=== PATIENT | female | born 1945 | race African-American/Black ===

== ENCOUNTER 2017-05-30 04:03 | Inpatient (IN) | payer MEDICARE, MEDICAID ==
[2017-05-30] VITALS (8 sets, daily range): BP systolic 114–143; BP diastolic 58–90
[~2017-05-30] VITALS: Ht 170.2 cm; Wt 99.8 kg
[~2017-05-30 04:03] MED LIST: ATORVASTATIN CA40 MG ORAL; BENAZEPRIL HCL20 MG ORAL; CALCIUM600 M1 PO; FERROUS SULFAT325 MG ORAL; METFORMIN HCL500 M1 ORAL; VITAMIN C1000 M2 PO; VITAMIN D1000 UNI1 ORAL; [UNRECOGNIZED DRUG - OTHER]
--- NOTE | 2017-05-30 04:28 | Emergency Room Report ---
History of Present Illness General Chief Complaint: Edema Source: Patient, EMS Present Illness HPI Patient presents by paramedics report of swelling of her tongue Patient reports that this has happened to her before Patient is unable to have appropriate speech however give any swelling of her tongue This happened just prior to arrival There was no reports of vomiting or diarrhea Patient is on JM inhibitor And again has apparently had this episode in the past however continues on the medication Denies any recent fevers Allergies: Coded Allergies: No Known Allergies (Unverified , 05/19/15) Patient History Past Medical History: see triage record Pertinent Family History: none Reviewed Nursing Documentation: PMH: Agreed, PSxH: Agreed Nursing Documentation-PMH Hx Cardiac Problems: Yes Hx Hypertension: Yes Hx Diabetes: Yes Hx Cancer: No Hx Gastrointestinal Problems: No Hx Neurological Problems: No Review of Systems All Other Systems: negative except mentioned in HPI Physical Exam Vital Signs Date Time Temp Pulse Resp B/P (MAP) Pulse Ox O2 Delivery O2 Flow Rate FiO2 05/30/17 04:04 97.0 78 16 134/56 100 Room Air Sp02 EP Interpretation: reviewed, normal General Appearance: no apparent distress Head: normocephalic, atraumatic Eyes: bilateral eye PERRL, bilateral eye EOMI ENT: other - Angioedema of the tongue, no obvious stridor, however the patient does have 80% blockage of the oral mucosa with the tongue Neck: full range of motion, supple Respiratory: lungs clear, normal breath sounds Cardiovascular #1: regular rate, rhythm Gastrointestinal: non tender, soft Musculoskeletal: normal inspection Neurologic: alert, oriented x3, sourcing consultant III-XII nml as tested Skin: no rash Lymphatic: no adenopathy Medical Decision Making Diagnostic Impression: Primary Impression: Angioedema ER Course Patient is a fairly complex patient with multiple differential to consideration including but not limited to cardiac cardiopulmonary and vascular emergencies It is been reported the patient is on a JM inhibitor Patient here receiving multiple medications for the reaction Airway remains open without signs of stridor At this time the patient is appropriate for telemetry admission consideration for ICU admission and preemptive airway intubation is made however given the patient's improvement at this time the patient is having conservative admission Labs Test 05/30/17 05:30 White Blood Count 10.9 K/UL (4.8-10.8) Red Blood Count 3.59 M/UL (4.20-5.40) Hemoglobin 10.4 G/DL (12.0-16.0) Hematocrit 31.6 % (37.0-47.0) Mean Corpuscular Volume 88 FL (80-99) Mean Corpuscular Hemoglobin 29.0 PG (27.0-31.0) Mean Corpuscular Hemoglobin Concent 32.9 G/DL (32.0-36.0) Red Cell Distribution Width 14.1 % (11.6-14.8) Platelet Count 403 K/UL (150-450) Mean Platelet Volume 6.0 FL (6.5-10.1) Neutrophils (%) (Auto) 67.0 % (45.0-75.0) Lymphocytes (%) (Auto) 25.6 % (20.0-45.0) Monocytes (%) (Auto) 4.8 % (1.0-10.0) Eosinophils (%) (Auto) 2.0 % (0.0-3.0) Basophils (%) (Auto) 0.6 % (0.0-2.0) Prothrombin Time 10.4 SEC (9.30-11.50) Prothromb Time International Ratio 1.0 (0.9-1.1) Activated Partial Thromboplast Time 28 SEC (23-33) Sodium Level 132 MMOL/L (136-145) Potassium Level 4.2 MMOL/L (3.5-5.1) Chloride Level 99 MMOL/L (98-107) Carbon Dioxide Level 27 MMOL/L (21-32) Anion Gap 7 mmol/L (5-15) Blood Urea Nitrogen 10 mg/dL (7-18) Creatinine 1.1 MG/DL (0.55-1.30) Estimat Glomerular Filtration Rate mL/min (>60) Glucose Level 191 MG/DL (74-106) Calcium Level 9.7 MG/DL (8.5-10.1) Total Bilirubin 0.3 MG/DL (0.2-1.0) Aspartate Amino Transf (AST/SGOT) 16 U/L (15-37) Alanine Aminotransferase (ALT/SGPT) 19 U/L (12-78) Alkaline Phosphatase 96 U/L (46-116) Total Creatine Kinase 118 U/L (26-308) Creatine Kinase MB 0.5 NG/ML (0.0-3.6) Creatine Kinase MB Relative Index 0.4 Troponin I 0.000 ng/mL (0.000-0.056) Pro-B-Type Natriuretic Peptide 59 pg/mL (0-125) Total Protein 7.8 G/DL (6.4-8.2) Albumin 3.3 G/DL (3.4-5.0) Globulin 4.5 g/dL Albumin/Globulin Ratio 0.7 (1.0-2.7) Rhythm Strip Diag. Results EP Interpretation: yes Rate: 77 Rhythm: NSR, no PVC's, no ectopy Chest X-Ray Diagnostic Results Chest X-Ray Diagnostic Results : Chest X-Ray Ordered: Yes # of Views/Limited/Complete: 1 View Indication: Chest Pain EP Interpretation: Yes Interpretation: no consolidation, no pneumothorax, other - Cardiomegaly with some effusion Impression: Other - mild CHF Last Vital Signs Date Time Temp Pulse Resp B/P (MAP) Pulse Ox O2 Delivery O2 Flow Rate FiO2 05/30/17 04:09 78 16 Room Air 05/30/17 04:04 97.0 134/56 100 Status: improved Disposition: ADMITTED INPATIENT Condition: Serious OSEI HALEY D.O. May 30, 2017 04:28
[2017-05-30] MEDS ORDERED: DiphenhydrAMINE 50mg/ml Inj IVP ONE (04:30)
[2017-05-30] MEDS ORDERED: Solu-MEDROL 125mg Inj IVP ONE (04:30)
[2017-05-30] MEDS ORDERED: BANOPHEN25 MG PO (05:09)
[2017-05-30 05:38] LABS: BASOPHILS % (AUTO) 0.6 % (0.0-2.0); LYMPHOCYTES % (AUTO) 25.6 % (20.0-45.0); MEAN CORPUSCULAR HGB CONC 32.9 G/DL (32.0-36.0); MEAN CORPUSCULAR VOLUME 88 FL (80-99); MONOCYTES % (AUTO) 4.8 % (1.0-10.0); PLATELET COUNT 403 K/UL (150-450); RED BLOOD COUNT 3.59 M/UL (4.20-5.40); RED CELL DISTRIBUTION WIDTH 14.1 % (11.6-14.8); WHITE BLOOD COUNT 10.9 K/UL (4.8-10.8)
[2017-05-30 05:46] LABS: ANION GAP 7 mmol/L (5-15); CALCIUM 9.7 MG/DL (8.5-10.1); CARBON DIOXIDE 27 MMOL/L (21-32); CHLORIDE 99 MMOL/L (98-107); CREATININE 1.1 MG/DL (0.55-1.30); POTASSIUM 4.2 MMOL/L (3.5-5.1); PROTHROMBIN TIME 10.4 SEC (9.30-11.50); SODIUM 132 MMOL/L (136-145)
[2017-05-30 05:59] LABS: ALANINE AMINOTRANSFERASE 19 U/L (12-78); ALBUMIN/GLOBULIN RATIO 0.7 (1.0-2.7); ASPARTATE AMINO TRANSFERASE 16 U/L (15-37); CKMB 0.5 NG/ML (0.0-3.6); TOTAL PROTEIN 7.8 G/DL (6.4-8.2)
[2017-05-30] MEDS: Vitamin D 1000 IU Tab ORAL SCH ×2 (10:02→17:29)
[2017-05-30] MEDS: Tums 500mg ORAL SCH ×2 (10:02→17:29)
[2017-05-30] MEDS: metFORMIN 500mg tab ORAL SCH ×2 (10:02→17:29)
[2017-05-30] MEDS: Heparin 5000 units/ml inj SUBQ SCH ×2 (10:07→21:31)
--- NOTE | 2017-05-30 11:35 | Diagnostic Imaging Report ---
Indication: Shortness of breath Technique: One view of the chest Comparison: none Findings: The heart is enlarged. There is bilateral interstitial congestion. No focal airspace consolidation The pleural spaces are clear Impression: Cardiomegaly Interstitial congestion, likely congestive heart failure
[2017-05-30] MEDS: NovoLOG Insulin Flexpen SUBQ SCH ×3 (11:40→21:32)
[2017-05-30] MEDS ORDERED: DiphenhydrAMINE 50mg/ml Inj IVP PRN (12:45)
--- NOTE | 2017-05-30 12:45 | Consultation ---
History of Present Illness General Date patient seen: May 30, 2017 Time patient seen: 11:00 Chief Complaint: angioedema Referring physician: dr Newman Reason for Consultation: inpatient management Present Illness HPI 72 y/old female with PMH of HTN, DM, hyperlipidemia, L eye cataract presented by paramedics swelling of her tongue Patient reported prior similar episodes Patient was on JM inhibitor for BP control Airway intact, but unable to speak due to swollen tongue workup in ED revealed stable VS pulse oximetry was stable on RA BS-191 HH-10.4/31.6 patient was admitted fro further management Allergies: Coded Allergies: No Known Allergies (Unverified , 05/19/15) Medication History Scheduled Ascorbic Acid (Vitamin C), 1,000 MG PO BID, (Reported) Atorvastatin Calcium* (Atorvastatin Calcium*), 40 MG ORAL BEDTIME, (Reported) Benazepril Hcl* (Benazepril Hcl*), 20 MG ORAL DA, (Reported) Calcium Carbonate (Calcium), 600 MG PO BID, (Reported) Cholecalciferol (Vitamin D3)* (Vitamin D*), 2,000 UNITS ORAL TWICE A DAY, ( Reported) Ferrous Sulfate* (Ferrous Sulfate*), 325 MG ORAL THREE TIMES A DAY, (Reported) Metformin Hcl* (Metformin Hcl*), 500 MG ORAL TWICE A DAY, (Reported) Scheduled PRN Diphenhydramine Hcl (Banophen), 25 MG PO Q6HR PRN for Per rx protocol, (Reported ) Miscellaneous Medications [pt to bring list], (Reported) Patient History History Provided By: Patient Healthcare decision maker Resuscitation status Full Code Advanced Directive on File No Past Medical/Surgical History Past Medical/Surgical History: (1) Diabetes (2) Hyperlipidemia (3) HTN (hypertension) (4) Cataract Review of Systems Constitutional: Reports: no symptoms Eye: Reports: other - L cataract ENT: Reports: see HPI Respiratory: Reports: no symptoms Cardiovascular: Reports: other - HTN, hyperlipidemia Gastrointestinal: Reports: constipation Genitourinary: Reports: no symptoms, other - hysterectomy Musculoskeletal: Reports: no symptoms Skin: Reports: no symptoms Psychiatric: Reports: no symptoms Neurological: Reports: no symptoms Endocrine: Reports: other - DM Hematologic/Lymphatic: Reports: no symptoms Physical Exam General Appearance: no apparent distress, alert, obese Lines, tubes and drains: peripheral HEENT: normocephalic, atraumatic, anicteric, other - protruded swollen tongue Neck: non-tender, supple Respiratory/Chest: lungs clear, no respiratory distress, no accessory muscle use Cardiovascular/Chest: normal rate, regular rhythm, no JVD Abdomen: normal bowel sounds, non tender - obese, soft Extremities: no calf tenderness, normal capillary refill Skin Exam: warm/dry - no Neurologic: alert, responsive - unable to speak due to swollen tongue , normal mood/affect Last 24 Hour Vital Signs Date Time Temp Pulse Resp B/P (MAP) Pulse Ox O2 Delivery O2 Flow Rate FiO2 05/30/17 12:00 97.0 80 18 130/58 96 Room Air 05/30/17 11:51 98.5 64 18 143/59 95 Room Air 05/30/17 08:00 97.5 72 19 134/90 94 Room Air 05/30/17 08:00 68 05/30/17 06:48 97.0 73 20 114/67 94 Room Air 05/30/17 06:20 97.0 68 15 129/83 99 Room Air 05/30/17 05:26 97.0 68 15 129/83 99 Room Air 05/30/17 04:09 78 16 Room Air 05/30/17 04:04 97.0 78 16 134/56 100 Room Air Intake and Output 05/30/17 05/31/17 19:00 07:00 Intake Total 180 ml Balance 180 ml Intake Oral 180 ml # Voids 3 # Bowel Movements 1 Laboratory Tests Test 05/30/17 05:30 White Blood Count 10.9 K/UL (4.8-10.8) H Red Blood Count 3.59 M/UL (4.20-5.40) L Hemoglobin 10.4 G/DL (12.0-16.0) L Hematocrit 31.6 % (37.0-47.0) L Mean Corpuscular Volume 88 FL (80-99) Mean Corpuscular Hemoglobin 29.0 PG (27.0-31.0) Mean Corpuscular Hemoglobin Concent 32.9 G/DL (32.0-36.0) Red Cell Distribution Width 14.1 % (11.6-14.8) Platelet Count 403 K/UL (150-450) Mean Platelet Volume 6.0 FL (6.5-10.1) L Neutrophils (%) (Auto) 67.0 % (45.0-75.0) Lymphocytes (%) (Auto) 25.6 % (20.0-45.0) Monocytes (%) (Auto) 4.8 % (1.0-10.0) Eosinophils (%) (Auto) 2.0 % (0.0-3.0) Basophils (%) (Auto) 0.6 % (0.0-2.0) Prothrombin Time 10.4 SEC (9.30-11.50) Prothromb Time International Ratio 1.0 (0.9-1.1) Activated Partial Thromboplast Time 28 SEC (23-33) Sodium Level 132 MMOL/L (136-145) L Potassium Level 4.2 MMOL/L (3.5-5.1) Chloride Level 99 MMOL/L (98-107) Carbon Dioxide Level 27 MMOL/L (21-32) Anion Gap 7 mmol/L (5-15) Blood Urea Nitrogen 10 mg/dL (7-18) Creatinine 1.1 MG/DL (0.55-1.30) Estimat Glomerular Filtration Rate mL/min (>60) Glucose Level 191 MG/DL (74-106) H Calcium Level 9.7 MG/DL (8.5-10.1) Total Bilirubin 0.3 MG/DL (0.2-1.0) Aspartate Amino Transf (AST/SGOT) 16 U/L (15-37) Alanine Aminotransferase (ALT/SGPT) 19 U/L (12-78) Alkaline Phosphatase 96 U/L (46-116) Total Creatine Kinase 118 U/L (26-308) Creatine Kinase MB 0.5 NG/ML (0.0-3.6) Creatine Kinase MB Relative Index 0.4 Troponin I 0.000 ng/mL (0.000-0.056) Pro-B-Type Natriuretic Peptide 59 pg/mL (0-125) Total Protein 7.8 G/DL (6.4-8.2) Albumin 3.3 G/DL (3.4-5.0) L Globulin 4.5 g/dL Albumin/Globulin Ratio 0.7 (1.0-2.7) L Height (Feet): 5 Height (Inches): 7.00 Weight (Pounds): 220 Medications Current Medications Medications (Trade) Dose Ordered Sig/Naomi Route PRN Reason Start Time Stop Time Status Last Admin Dose Admin Atorvastatin Calcium (Lipitor) 40 mg BEDTIME ORAL 05/30/17 21:00 06/29/17 20:59 Calcium Carbonate (Tums) 500 mg TWICE A DAY ORAL 05/30/17 09:45 06/29/17 09:44 05/30/17 10:02 Dextrose (Dextrose 50%) STAT PRN IV Hypoglycemia 05/30/17 09:00 06/29/17 08:59 Diphenhydramine HCl (Benadryl) 25 mg Q6H PRN ORAL Itching 05/30/17 09:00 06/29/17 08:59 Heparin Sodium (Porcine) (Heparin 5000 units/ml) 5,000 units EVERY 12 HOURS SUBQ 05/30/17 09:45 06/29/17 09:44 05/30/17 10:07 Insulin Aspart (NovoLOG) BEFORE MEALS AND HS SUBQ 05/30/17 11:30 06/29/17 11:29 05/30/17 11:40 Metformin HCl (Glucophage) 500 mg TWICE A DAY ORAL 05/30/17 09:45 06/29/17 09:44 05/30/17 10:02 Vitamin D (Vitamin D) 2,000 intlu TWICE A DAY ORAL 05/30/17 09:45 06/29/17 09:44 05/30/17 10:02 Assessment/Plan Assessment/Plan ASSESSMENT angioedema 2 to JM tongue swelling HTN DM obesity anemia PLAN OF CARE transfer to MS floor airway intact , monitor closely short pulse steroids IV long acting nonsedating antihistamine -Zyrtec and H2B -Zantac Benadryl PRN swallow eval No JM, place as allergy BP management with Clonidine prn BS management with Metformin and SS of insulin prn DVT prophylaxis monitor HH, if further trend down, initiate anemia w/up case discussed and evaluated by supervising physician [facility] May 30, 2017 12:45
[2017-05-30] MEDS ORDERED: Solu-MEDROL 40mg Inj IVP SCH (13:15)
--- NOTE | 2017-05-30 17:36 | History & Physical ---
History and Physical History & Physicial Mehran Newman MD May 30, 2017 17:36
--- NOTE | 2017-05-30 23:16 | History and Physical Report ---
DATE OF ADMISSION: 05/30/2017 CHIEF COMPLAINT: Tongue swelling. HISTORY OF PRESENT ILLNESS: This is a 72-year-old, female with past medical history significant for hypertension, dyslipidemia, and diabetes type 2, who presented to the hospital complaining about swollen tongue since 1 o'clock in the morning. She states that this has been happening to her almost once a year with lip swelling, but never tongue swelling and she said that has been going on for the past 4 or 5 episodes and shortly after initial evaluation in the emergency room, the patient was admitted to the hospital with angioedema possibly as a result of JM inhibitor. PAST MEDICAL HISTORY/PAST SURGICAL HISTORY: As above. History of morbid obesity, diabetes type 2, hypertension, and dyslipidemia. Denies any past surgical history. MEDICATIONS AT HOME: Significant for ascorbic acid, atorvastatin, benazepril, calcium, vitamin D3, Benadryl, iron sulfate, and metformin; however, she said that her regular doctor took her off the Benadryl. ALLERGIES: No known drug allergies. SOCIAL HISTORY: The patient smokes half a pack of cigarettes. Denies any substance abuse. No alcohol abuse. FAMILY HISTORY: Noncontributory. REVIEW OF SYSTEMS: Mostly as above. Denies any dysuria, frequency, hematuria, or hematochezia. Denies any hemoptysis or hematochezia. Denies any swallowing difficulty. Denies any loss of consciousness. Denies any double vision. PHYSICAL EXAMINATION: VITAL SIGNS: On admission, temperature 97.0, pulse of 78, respirations 16, and blood pressure 134/56. GENERAL: The patient is awake, responsive, in no acute distress. HEAD AND NECK: Pupils are equal and reactive to light. Extraocular movements are intact. Neck was supple. No JVD. Tongue swelling has decreased and no lip edema was noted. LUNGS: Good air entry. No wheezing or rales. HEART: S1 and S2. Regular rhythm. No gallops. ABDOMEN: Soft, nondistended, and nontender. Morbidly obese. EXTREMITIES: No cyanosis or clubbing. A +1 edema in bilateral lower extremities. NEUROLOGIC: Cranial nerves II through XII are grossly intact. Motor strength 5/5 in all extremities. Gait is intact. LABORATORY DATA: On admission from the ER, WBC of 10.9, hemoglobin 10.4, hematocrit 31, and platelets 403. Sodium 133, potassium 4.2, chloride 99, bicarbonate 27, BUN 10, creatinine 1.1 and glucose is 191. First troponin is less than 0.00. Albumin is 3.3. PT of 10, INR 1.0, and PTT of 28. EKG is normal sinus rhythm with ventricular rate of 72 with a first-degree AV block. No ST elevation was noted. No T-wave inversion. ASSESSMENT: 1. Angioedema of the tongue, most likely secondary to medication induced such as lisinopril. 2. Hypertension. 3. Dyslipidemia. 4. Anemia. 5. Morbid obesity. PLAN: We will continue to hold off on lisinopril. The patient is to start on Accu-Chek sliding scale. We will monitor the tongue and swallowing and function. If the patient's status improved, consider discharge home and could be followed up with her primary doctor within 1 week. Mehran Newman M.D. DR: VINCENT JOB#: [id number] CC:
[2017-05-31 04:00] VITALS: BP 156/79
[2017-05-31] MEDS: NovoLOG Insulin Flexpen SUBQ SCH ×2 (06:08→12:02)
[2017-05-31 08:00] VITALS: BP 113/58
[2017-05-31 08:12] LABS: MEAN CORPUSCULAR HEMOGLOBIN 29.9 PG (27.0-31.0); MEAN CORPUSCULAR HGB CONC 33.8 G/DL (32.0-36.0); MEAN CORPUSCULAR VOLUME 88 FL (80-99); MEAN PLATELET VOLUME 5.9 FL (6.5-10.1); PLATELET COUNT 372 K/UL (150-450); RED BLOOD COUNT 3.31 M/UL (4.20-5.40); RED CELL DISTRIBUTION WIDTH 14.1 % (11.6-14.8); WHITE BLOOD COUNT 21.1 K/UL (4.8-10.8)
[2017-05-31 08:28] LABS: ANION GAP 14 mmol/L (5-15); CARBON DIOXIDE 22 MMOL/L (21-32); CHLORIDE 93 MMOL/L (98-107); CREATININE 1.2 MG/DL (0.55-1.30); POTASSIUM 4.3 MMOL/L (3.5-5.1); SODIUM 129 MMOL/L (136-145)
[2017-05-31 09:12] LABS: ALANINE AMINOTRANSFERASE 21 U/L (12-78); ALBUMIN/GLOBULIN RATIO 0.8 (1.0-2.7); ANION GAP 13 mmol/L (5-15); ASPARTATE AMINO TRANSFERASE 15 U/L (15-37); CALCIUM 10.2 MG/DL (8.5-10.1); CARBON DIOXIDE 22 MMOL/L (21-32); CHLORIDE 93 MMOL/L (98-107); CREATININE 1.1 MG/DL (0.55-1.30); MAGNESIUM 1.4 MG/DL (1.8-2.4); PHOSPHORUS 3.1 MG/DL (2.5-4.9); POTASSIUM 3.9 MMOL/L (3.5-5.1); SODIUM 128 MMOL/L (136-145); TOTAL PROTEIN 7.6 G/DL (6.4-8.2)
[2017-05-31] MEDS ORDERED: EPIPEN 2-P0.3 MG/0.3 IM (09:58)
[2017-05-31] MEDS ORDERED: RANITIDINE HCL150 MG ORAL (09:58)
[2017-05-31] MEDS ORDERED: NORVASC5 MG ORAL (09:58)
[2017-05-31] MEDS: Vitamin D 1000 IU Tab ORAL SCH (09:58)
[2017-05-31] MEDS ORDERED: PREDNISONE5 MG ORAL (09:58)
[2017-05-31] MEDS ORDERED: CETIRIZINE HCL10 MG ORAL (09:58)
[2017-05-31] MEDS: metFORMIN 500mg tab ORAL SCH (09:58)
[2017-05-31] MEDS: Heparin 5000 units/ml inj SUBQ SCH (10:00)
[2017-05-31] MEDS ORDERED: Sodium Chloride 500ML 500 ML IV ONE (10:00)
--- NOTE | 2017-05-31 10:01 | Pulmonology Progress Note ---
Assessment/Plan Assessment/Plan ASSESSMENT angioedema 2 to JM tongue swelling HTN DM obesity anemia mild hypoNa likely due to dehydration PLAN OF CARE MS tongue swelling resolved short pulse steroids IV long acting nonsedating antihistamine -Zyrtec and H2B -Zantac Benadryl PRN No JM, place as allergy BP management with CCB ( will dc ARB also can cause angioedema) BS management with Metformin and SS of insulin prn DVT prophylaxis monitor HH, if further trend down, initiate anemia w/up for low Na-129 likely due to mild dehydration, give 500 cc NS now leukocytosis reactive due to steroids, afebrile, no signs of infection taper steroids to 10 mg x 3 days then 5 mg x 2 days and then dc stable for dc scripts provided for 5 days ( steroid, Zyrtec, Zantac and Epi-pen prn as well as Norvasc) case discussed and evaluated by supervising physician Subjective Allergies: Coded Allergies: JM INHIBITORS (Verified Allergy, Severe, Anaphylaxis, 05/31/17) COPIED FROM UNCODED SECTION Subjective tongue swelling resolved eating, talking, wants to go home Objective Last 24 Hour Vital Signs Date Time Temp Pulse Resp B/P (MAP) Pulse Ox O2 Delivery O2 Flow Rate FiO2 05/31/17 04:00 98.0 72 18 156/79 98 Room Air 05/30/17 23:51 98.1 60 20 117/62 100 Room Air 05/30/17 20:00 Room Air 05/30/17 20:00 97.7 93 18 131/74 100 Room Air 05/30/17 16:00 78 05/30/17 15:36 97.9 80 18 120/63 97 05/30/17 12:00 78 05/30/17 12:00 97.0 80 18 130/58 96 Room Air 05/30/17 11:51 98.5 64 18 143/59 95 Room Air Objective General Appearance: no apparent distress, A/A/O x 3 , conversing easily Lines, tubes and drains: peripheral HEENT: normocephalic, atraumatic, anicteric, tongue swelling and protruding resolved Neck: non-tender, supple Respiratory/Chest: lungs clear, no respiratory distress, no accessory muscle use Cardiovascular/Chest: normal rate, regular rhythm, no JVD Abdomen: normal bowel sounds, non tender - obese, soft Extremities: no calf tenderness, normal capillary refill Skin Exam: warm/dry Neurologic: A/A/O x 3 Laboratory Tests 05/31/17 04:50: White Blood Count 21.1#H, Red Blood Count 3.31L, Hemoglobin 9.9L, Hematocrit 29.2L, Mean Corpuscular Volume 88, Mean Corpuscular Hemoglobin 29.9, Mean Corpuscular Hemoglobin Concent 33.8, Red Cell Distribution Width 14.1, Platelet Count 372, Mean Platelet Volume 5.9L, Neutrophils (%) (Auto) , Lymphocytes (%) ( Auto) , Monocytes (%) (Auto) , Eosinophils (%) (Auto) , Basophils (%) (Auto) , Neutrophils % (Manual) [Pending], Lymphocytes % (Manual) [Pending], Platelet Estimate [Pending], Platelet Morphology [Pending], Sodium Level 129L, Potassium Level 4.3, Chloride Level 93L, Carbon Dioxide Level 22, Anion Gap 14, Blood Urea Nitrogen 18, Creatinine 1.2, Estimat Glomerular Filtration Rate , Glucose Level 182H, Calcium Level 10.0, Phosphorus Level 3.1, Magnesium Level 1.4L, Total Bilirubin 0.3, Aspartate Amino Transf (AST/SGOT) 15, Alanine Aminotransferase (ALT/SGPT) 21, Alkaline Phosphatase 89, Total Protein 7.6, Albumin 3.3L, Globulin 4.3, Albumin/Globulin Ratio 0.8L Current Medications Medications (Trade) Dose Ordered Sig/Naomi Route PRN Reason Start Time Stop Time Status Last Admin Dose Admin Atorvastatin Calcium (Lipitor) 40 mg BEDTIME ORAL 05/30/17 21:00 06/29/17 20:59 05/30/17 21:27 Calcium Carbonate (Tums) 500 mg TWICE A DAY ORAL 05/30/17 09:45 06/29/17 09:44 05/30/17 17:29 Cetirizine HCl (ZyrTEC) 10 mg DAILY ORAL 05/30/17 13:15 06/29/17 13:14 05/30/17 14:04 Dextrose (Dextrose 50%) STAT PRN IV Hypoglycemia 05/30/17 09:00 06/29/17 08:59 Diphenhydramine HCl (Benadryl) 25 mg Q6H PRN ORAL Itching 05/30/17 09:00 06/29/17 08:59 Diphenhydramine HCl (Benadryl) 50 mg Q6H PRN IVP Itching 05/30/17 12:45 06/29/17 12:44 Heparin Sodium (Porcine) (Heparin 5000 units/ml) 5,000 units EVERY 12 HOURS SUBQ 05/30/17 09:45 06/29/17 09:44 05/30/17 21:31 Insulin Aspart (NovoLOG) BEFORE MEALS AND HS SUBQ 05/30/17 11:30 06/29/17 11:29 05/31/17 06:08 Irbesartan (Avapro) 75 mg DAILY ORAL 05/31/17 09:00 06/30/17 08:59 Metformin HCl (Glucophage) 500 mg TWICE A DAY ORAL 05/30/17 09:45 06/29/17 09:44 05/30/17 17:29 Ranitidine HCl (Zantac) 150 mg BEDTIME ORAL 05/30/17 21:00 06/29/17 20:59 05/30/17 21:27 Vitamin D (Vitamin D) 2,000 intlu TWICE A DAY ORAL 05/30/17 09:45 06/29/17 09:44 05/30/17 17:29 Sky ([facility])Latanya NP May 31, 2017 10:01
[2017-05-31 10:26] LABS: BAND NEUTROPHILS % (MANUAL) 2 % (0-8); LYMPHOCYTES % (MANUAL) 21 % (20-45); NEUTROPHILS % (MANUAL) 71 % (45-75); TOTAL CELLS COUNTED 100
[2017-05-31 10:27] LABS: BASOPHILS % (MANUAL) 0 % (0-2); EOSINOPHILS % (MANUAL) 0 % (0-3); HYPOCHROMASIA 1+; PLATELET ESTIMATE INCREASED; PLATELET MORPHOLOGY NORMAL
[2017-05-31] MEDS: Tums 500mg ORAL SCH (11:34)
[2017-05-31 12:00] VITALS: BP 123/73
[2017-05-31] MEDS ORDERED: Sodium Chloride 500ML 550 ML IV ONE (12:00)
[2017-05-31] MEDS ORDERED: PREDNISONE10 M2 PO (13:26)
[2017-05-31] MEDS ORDERED: PREDNISONE5 M4 PO (13:31)
--- NOTE | 2017-05-31 15:09 | Internal Med Progress Note ---
Subjective Date of Service: May 31, 2017 Physician Name Annette Morales Attending Physician Mehran Newman MD Current Medications Medications (Trade) Dose Ordered Sig/Naomi Route PRN Reason Start Time Stop Time Status Last Admin Dose Admin Amlodipine Besylate (Norvasc) 5 mg DAILY ORAL 06/01/17 09:00 07/01/17 08:59 Atorvastatin Calcium (Lipitor) 40 mg BEDTIME ORAL 05/30/17 21:00 06/29/17 20:59 05/30/17 21:27 Calcium Carbonate (Tums) 500 mg TWICE A DAY ORAL 05/30/17 09:45 06/29/17 09:44 05/31/17 11:34 Cetirizine HCl (ZyrTEC) 10 mg DAILY ORAL 05/30/17 13:15 06/29/17 13:14 05/31/17 09:58 Dextrose (Dextrose 50%) STAT PRN IV Hypoglycemia 05/30/17 09:00 06/29/17 08:59 Diphenhydramine HCl (Benadryl) 25 mg Q6H PRN ORAL Itching 05/30/17 09:00 06/29/17 08:59 Diphenhydramine HCl (Benadryl) 50 mg Q6H PRN IVP Itching 05/30/17 12:45 06/29/17 12:44 Heparin Sodium (Porcine) (Heparin 5000 units/ml) 5,000 units EVERY 12 HOURS SUBQ 05/30/17 09:45 06/29/17 09:44 05/31/17 10:00 Insulin Aspart (NovoLOG) BEFORE MEALS AND HS SUBQ 05/30/17 11:30 06/29/17 11:29 05/31/17 12:02 Metformin HCl (Glucophage) 500 mg TWICE A DAY ORAL 05/30/17 09:45 06/29/17 09:44 05/31/17 09:58 Ranitidine HCl (Zantac) 150 mg BEDTIME ORAL 05/30/17 21:00 06/29/17 20:59 05/30/17 21:27 Vitamin D (Vitamin D) 2,000 intlu TWICE A DAY ORAL 05/30/17 09:45 06/29/17 09:44 05/31/17 09:58 Allergies: Coded Allergies: JM INHIBITORS (Verified Allergy, Severe, Anaphylaxis, 05/31/17) COPIED FROM UNCODED SECTION ROS Limited/Unobtainable: No Constitutional: Reports: no symptoms HEENT: Reports: no symptoms Cardiovascular: Reports: no symptoms Respiratory: Reports: no symptoms Gastrointestinal/Abdominal: Reports: no symptoms Genitourinary: Reports: no symptoms Neurologic/Psychiatric: Reports: no symptoms Subjective 72 YO F admitted with angioedema tongue. Cover for Int Med-Dr Newman. Objective Last Vital Signs Date Time Temp Pulse Resp B/P (MAP) Pulse Ox O2 Delivery O2 Flow Rate FiO2 05/31/17 12:00 98.4 69 20 123/73 99 Room Air General Appearance: WD/WN, no apparent distress, alert EENT: PERRL/EOMI, normal ENT inspection, TMs normal Neck: non-tender, normal alignment, supple Cardiovascular: normal peripheral pulses, normal rate, regular rhythm, no gallop/murmur, no JVD Respiratory/Chest: chest wall non-tender, lungs clear, normal breath sounds, no respiratory distress, no accessory muscle use Abdomen: normal bowel sounds, non tender, soft, no organomegaly, no mass Extremities: normal range of motion 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, no motor/sensory deficits Skin: normal pigmentation, warm/dry Laboratory Tests Test 05/31/17 04:50 White Blood Count 21.1 K/UL (4.8-10.8) #H Red Blood Count 3.31 M/UL (4.20-5.40) L Hemoglobin 9.9 G/DL (12.0-16.0) L Hematocrit 29.2 % (37.0-47.0) L Mean Corpuscular Volume 88 FL (80-99) Mean Corpuscular Hemoglobin 29.9 PG (27.0-31.0) Mean Corpuscular Hemoglobin Concent 33.8 G/DL (32.0-36.0) Red Cell Distribution Width 14.1 % (11.6-14.8) Platelet Count 372 K/UL (150-450) Mean Platelet Volume 5.9 FL (6.5-10.1) L Neutrophils (%) (Auto) % (45.0-75.0) Lymphocytes (%) (Auto) % (20.0-45.0) Monocytes (%) (Auto) % (1.0-10.0) Eosinophils (%) (Auto) % (0.0-3.0) Basophils (%) (Auto) % (0.0-2.0) Differential Total Cells Counted 100 Neutrophils % (Manual) 71 % (45-75) Lymphocytes % (Manual) 21 % (20-45) Monocytes % (Manual) 6 % (1-10) Eosinophils % (Manual) 0 % (0-3) Basophils % (Manual) 0 % (0-2) Band Neutrophils 2 % (0-8) Platelet Estimate Increased H Platelet Morphology Normal Hypochromasia 1+ Sodium Level 129 MMOL/L (136-145) L Potassium Level 4.3 MMOL/L (3.5-5.1) Chloride Level 93 MMOL/L (98-107) L Carbon Dioxide Level 22 MMOL/L (21-32) Anion Gap 14 mmol/L (5-15) Blood Urea Nitrogen 18 mg/dL (7-18) Creatinine 1.2 MG/DL (0.55-1.30) Estimat Glomerular Filtration Rate mL/min (>60) Glucose Level 182 MG/DL (74-106) H Calcium Level 10.0 MG/DL (8.5-10.1) Phosphorus Level 3.1 MG/DL (2.5-4.9) Magnesium Level 1.4 MG/DL (1.8-2.4) L Total Bilirubin 0.3 MG/DL (0.2-1.0) Aspartate Amino Transf (AST/SGOT) 15 U/L (15-37) Alanine Aminotransferase (ALT/SGPT) 21 U/L (12-78) Alkaline Phosphatase 89 U/L (46-116) Total Protein 7.6 G/DL (6.4-8.2) Albumin 3.3 G/DL (3.4-5.0) L Globulin 4.3 g/dL Albumin/Globulin Ratio 0.8 (1.0-2.7) L Intake and Output 05/31/17 06/01/17 19:00 07:00 Intake Total 240 ml Balance 240 ml Intake Oral 240 ml # Voids 2 Assessment/Plan Status: progressing Assessment/Plan 1. Angioedema of the tongue, most likely secondary to medication induced such as lisinopril. 2. Hypertension. 3. Dyslipidemia. 4. Anemia. 5. Morbid obesity. PLAN: We will continue to hold off on lisinopril. The patient is to start on Accu-Chek sliding scale. We will monitor the tongue and swallowing and function. If the patient's status improved, consider discharge home and could be followed up with her primary doctor within 1 week. Discharge home today ANNETTE MORALES May 31, 2017 15:09
[2017-05-31] MEDS ORDERED: NS 500ML ONE (16:11)
--- NOTE | 2017-06-01 14:39 | Cardiology Report ---
APPROVED REPORT EKG Measurement Heart [id number] Sinus rhythm with 1st degree AV block Otherwise normal ECG
--- NOTE | 2017-06-03 09:55 | Discharge Summary ---
Discharge Summary Hospital Course Date of Admission May 30, 2017 at 05:08 Date of Discharge May 31, 2017 at 14:30 Admitting Diagnosis ANGIOEDEMA HPI Jon Yo is a 72 year old female who was admitted on May 30, 2017 at 05: 08 for Angioedema Hospital Course dc summary #[id number] Discharge Medications New Medications: Amlodipine Besylate (Norvasc) 5 Mg Tablet 5 MG ORAL DAILY, #30 TAB Epinephrine (Epipen 2-Arvind) 0.3 Mg/0.3 Ml Auto.injct 0.3 MG IM PRN, #1 EA Cetirizine Hcl (Cetirizine Hcl) 10 Mg Tablet 10 MG ORAL DAILY, #5 TAB Ranitidine Hcl* (Zantac*) 150 Mg Tablet 150 MG ORAL BEDTIME, #5 TAB Continued Medications: Ascorbic Acid (Vitamin C) 1,000 Mg Tablet 1000 MG PO BID, TAB Atorvastatin Calcium* (Atorvastatin Calcium*) 40 Mg Tablet 40 MG ORAL BEDTIME, TAB Calcium Carbonate (Calcium) 600 Mg Tablet 600 MG PO BID, TAB Cholecalciferol (Vitamin D3)* (Vitamin D*) 1,000 Unit Tablet 2000 UNITS ORAL TWICE A DAY, #60 TAB 0 Refills Ferrous Sulfate* (Ferrous Sulfate*) 325 Mg Tablet 325 MG ORAL THREE TIMES A DAY, #90 TAB 0 Refills Metformin Hcl* (Metformin Hcl*) 500 Mg Tablet 500 MG ORAL TWICE A DAY, TAB Prednisone (Prednisone) 10 Mg Tab.ds.pk 10 MG PO for Taper for 3 Days, #3 PACK prednisone 10 mg oral daily for 3 days. than prednisone 5 mg oral for 2 days than stop. Prednisone (Prednisone) 5 Mg Tab.ds.pk 5 MG PO for 2 Days, #2 PACK Discontinued Medications: Benazepril Hcl* (Benazepril Hcl*) 20 Mg Tablet 20 MG ORAL DA, TAB Discharge Discharge Disposition Patient was discharged to Home (01) Discharge Diagnoses: Swanson (Vanchtein)Latanya NP Jun 03, 2017 09:55
--- NOTE | 2017-06-04 03:02 | Discharge Summary 2 SIG ---
DATE OF ADMISSION: 05/30/2017 DATE OF DISCHARGE: 05/31/2017 REASON FOR ADMISSION: A 72-year-old female with past medical history of hypertension, diabetes, hyperlipidemia, and left eye cataract, presented by paramedics with swelling of her tongue. The patient reported prior similar episodes. The patient was on JM inhibitor for blood pressure control. Airway was intact. The patient was unable to speak due to the swollen and protruded tongue. Workup in the emergency room revealed stable vital signs. Intact oral airway, patient was able to protect airway. Pulse oximetry was stable on room air. Blood sugar -191. Hemoglobin -10.4 and hematocrit - 31.6. The patient was admitted for further management with diagnosis of angioedema secondary to JM, tongue swelling, hypertension, diabetes, obesity, and anemia. HOSPITAL COURSE: The patient was admitted to medical/surgical floor. Airway was closely monitored, remained intact. The patient was started on short pulse of IV steroids, long acting nonsedating antihistamine i.e. Zyrtec and H2 ron i.e. Zantac. Benadryl was provided as needed. JM inhibitor was obviously discontinued . Allergy to JM inhibitor was placed in the patient chart. Blood pressure was managed initially with clonidine on as needed basis. Blood sugar was managed with metformin and sliding scale of insulin as needed. DVT prophylaxis provided. Hemoglobin and hematocrit were closely monitored and remained stable. Next day, tongue swelling resolved. The patient was able to eat and speak. Noted low sodium next day 129, likely due to mild dehydration since the patient did not eat the day before. The patient was given 500 mL of normal saline. The patient had leukocytosis, but likely reactive secondary to steroids. The patient was afebrile and no signs of infection were noted. Upon discharge, taper steroids to 10 mg for three days, then 5 mg for two days, and then discontinue. Prescription provided for five days for steroids, Zyrtec, Zantac, EpiPe as well as Norvasc for blood pressure control. The patient was reminded of JM allergen and to inform all care providers regarding it. The patient was stable for discharge. FINAL DIAGNOSES: 1. Angioedema secondary to JM, resolved. 2. Tongue swelling, resolved. 3. Hypertension. 4. Diabetes. 5. Obesity. 6. Anemia. 7. Hyponatremia likely secondary to mild dehydration. DISCHARGE MEDICATIONS: See medication reconciliation list. DISCHARGE INSTRUCTIONS: The patient discharged home. Follow up with primary medical doctor next week. Mehran Newman M.D. Latanya ChambersClifton Springs Hospital & ClinicMorteza N.PThuan DR: Desirae JOB#: [id number] CC: HERIBERTO
== END 2017-05-31 14:30 | disposition home or self-care (01) | DRG 916 ==
LOC: EDBD 04:03 → EMR 04:10 → 2E 05:08 → EDBEDREQ 05:35 → 3E 19:33
DX: T78.3XXA Angioneurotic edema, initial encounter (principal); D64.9 Anemia, unspecified; E11.9 Type 2 diabetes mellitus without complications; E66.01 Morbid (severe) obesity due to excess calories; E87.1 Hypo-osmolality and hyponatremia; I10 Essential (primary) hypertension; E78.5 Hyperlipidemia, unspecified; F17.200 Nicotine dependence, unspecified, uncomplicated; T46.4X5A Adverse effect of angiotensin-converting-enzyme inhibitors, initial encounter; H26.9 Unspecified cataract; E86.0 Dehydration
CPT/HCPCS: 36415; 71010; 80048; 80053; 82550; 82553; 82962; 83735; 83880; 84100; 84484; 85007; 85025; 85610; 85730; 93005; 99285; J1815

== ENCOUNTER 2018-10-25 05:47 | Inpatient (IN) | payer MEDICARE, MEDICAID ==
[~2018-10-25] VITALS: Ht 167.6 cm; Wt 96.2 kg
[2018-10-25 05:47] VITALS: BP 92/52
[~2018-10-25 05:47] MED LIST changes: +BANOPHEN25 MG PO; +CETIRIZINE HCL10 MG ORAL; +EPIPEN 2-P0.3 MG/0.3 IM; +NORVASC5 MG ORAL; +PREDNISONE10 M2 PO; +PREDNISONE5 M4 PO; +PREDNISONE5 MG ORAL; +RANITIDINE HCL150 MG ORAL
--- NOTE | 2018-10-25 05:47 | NUR ---
Note undone in EDM - 10/25/18 at 0647 by SANIYA ED Nurse Note: pt brought in by [facility] from home c/o dizziness and weakness, per EMS report, pt drank some rum last night and woke up feeling dizzy and weak, pt was recently [facility] from [facility] [place] about 10 days ago, dx septic shock from belizean butt lift, pt states she had surgical procedure (liposuction and belizean butt lift) about one month. pt states she also had a-flutter in hospital but doctor told pt she doesn't have to take medications. BS=54 on field by EMS, pt states she hasn't been eating. Report given to JULIA Baptiste.
--- NOTE | 2018-10-25 05:47 | NUR ---
ED Nurse Note: Patient BIBA from home, with complaints of increased gas after having 2 beers last night. Patient regards feeling as discomfort and not pain. Although when patient experiences the discomfort she becomes short of breath and hypotensive. Patient is A&Ox4, ambulatory with cane.
[2018-10-25] MEDS ORDERED: DiphenhydrAMINE 50mg/ml Inj IVP ONE ×2 (06:00→07:00)
[2018-10-25] MEDS ORDERED: Metoclopramide 10mg/2ml Inj IVP ONE (06:00)
--- NOTE | 2018-10-25 06:10 | NUR ---
ED Nurse Note: Patient refuse to take benadryl citing a previous doctor said that it does more harm than good. All other medications rendered. patient tolerating 500ml NS fluid bolus well and maintainence fluid NS 300ml/hr also. Patient is experiencing intermittent discomfort, EKG taking suring last episode is no different from the first reading. ERMD informed.
[2018-10-25 06:24] LABS: EOSINOPHILS % (AUTO) 2.3 % (0.0-3.0); HEMATOCRIT 32.4 % (37.0-47.0); HEMOGLOBIN 10.6 G/DL (12.0-16.0); LYMPHOCYTES % (AUTO) 40.1 % (20.0-45.0); MEAN CORPUSCULAR VOLUME 79 FL (80-99); MONOCYTES % (AUTO) 6.4 % (1.0-10.0); NEUTROPHILS % (AUTO) 50.1 % (45.0-75.0); PLATELET COUNT 454 K/UL (150-450); RED BLOOD COUNT 4.11 M/UL (4.20-5.40); RED CELL DISTRIBUTION WIDTH 14.8 % (11.6-14.8); WHITE BLOOD COUNT 9.9 K/UL (4.8-10.8)
[2018-10-25 06:49] LABS: ANION GAP 9 mmol/L (5-15); BLOOD UREA NITROGEN 14 mg/dL (7-18); CALCIUM 9.5 MG/DL (8.5-10.1); CARBON DIOXIDE 28 MMOL/L (21-32); CHLORIDE 98 MMOL/L (98-107); CREATININE 1.1 MG/DL (0.55-1.30); POTASSIUM 3.5 MMOL/L (3.5-5.1); SODIUM 135 MMOL/L (136-145)
[2018-10-25 06:58] LABS: ALANINE AMINOTRANSFERASE 16 U/L (12-78); ALBUMIN 3.2 G/DL (3.4-5.0); ALBUMIN/GLOBULIN RATIO 0.7 (1.0-2.7); ALKALINE PHOSPHATASE 88 U/L (46-116); ASPARTATE AMINO TRANSFERASE 14 U/L (15-37); BILIRUBIN,TOTAL 0.1 MG/DL (0.2-1.0)
--- NOTE | 2018-10-25 07:08 | NUR ---
ED Nurse Note: Patient currently undergoing chest xray.
--- NOTE | 2018-10-25 07:33 | Emergency Room Report ---
History of Present Illness General Chief Complaint: Gastrointestinal Illness Source: Patient, EMS Present Illness HPI Patient presents with severe right upper quadrant pain radiating to her. It began after drinking 2 beers last night. Last time she drank beer a year ago she did not have this problem. She denies any vomiting. The pain is causing her to feel short of breath. The patient is diabetic and her blood sugars of been well controlled. She denies diarrhea. The pain is rated 8/10 at this time. She feels that she was able to take some soda that she would be able to get relief. She feels this is gas. She's never had pain like this before. She doesn't know she has gallstones. She's never had abdominal surgery in the past. Pain is pressure and aching "gas". She was admitted May 2017 with these discharge dx: 1. Angioedema secondary to JM, resolved. 2. Tongue swelling, resolved. 3. Hypertension. 4. Diabetes. 5. Obesity. 6. Anemia. 7. Hyponatremia likely secondary to mild dehydration. Allergies: Coded Allergies: JM INHIBITORS (Verified Allergy, Severe, Anaphylaxis, 05/31/17) COPIED FROM UNCODED SECTION Patient History Past Medical History: see triage record Social History: Denies: smoking Social History Narrative at home Reviewed Nursing Documentation: PMH: Agreed; PSxH: Agreed Nursing Documentation-PMH Past Medical History: No History, Except For Hx Cardiac Problems: Yes Hx Hypertension: Yes Hx Diabetes: Yes Hx Cancer: No Hx Gastrointestinal Problems: No Hx Neurological Problems: No Review of Systems All Other Systems: negative except mentioned in HPI Physical Exam Vital Signs Date Time Temp Pulse Resp B/P (MAP) Pulse Ox O2 Delivery O2 Flow Rate FiO2 10/25/18 05:43 98.2 82 16 100 Room Air 10/25/18 05:47 92/52 Sp02 EP Interpretation: reviewed, normal General Appearance: well appearing, no apparent distress, GCS 15, non-toxic Head: normocephalic Eyes: bilateral eye PERRL, bilateral eye EOMI, bilateral eye other - arcus ENT: moist mucus membranes Neck: supple Respiratory: lungs clear, normal breath sounds Cardiovascular #1: regular rate, rhythm Cardiovascular #2: 2+ radial (R) Gastrointestinal: normal inspection, normal bowel sounds, no mass, non- distended, no guarding, no rebound, tenderness - RUQ Musculoskeletal: back normal, gait/station normal, normal range of motion Neurologic: alert, oriented x3 Skin: normal inspection, warm/dry Medical Decision Making Diagnostic Impression: Primary Impression: Right upper quadrant pain Additional Impressions: Transient hypotension Dyspnea Qualified Codes: R06.02 - Shortness of breath ER Course Patient presents with right upper quadrant pain and dyspnea. Differential includes acute myocardial infarction, pulmonary embolus, cholecystitis, gallstone, peptic ulcer disease, gastritis amongst others. Patient evaluated with EKG, chest x-ray and abdominal film with labs. Blood pressure is mildly low and therefore a fluid bolus will be administered. In addition Reglan will be administered. The patient claims she has an allergy to Benadryl however she' s never received IV Benadryl in the past. Patient was transiently hypotensive but not tachycardic. Repeat EKG done that she felt dyspneic at that time. Fluid bolus almost in. After fluid bolus in patient no longer hypotensive. Benadryl administered for possible adverse reaction to metoclopramide. EKG sinus rhythm with first-degree AV block otherwise normal EKG. Repeat EKG on changed. Chest x-ray with increased montano at the bases. Abdominal film with nonspecific bowel gas pattern no masses or obstruction. White count normal. Lactate normal. No longer dyspneic but still with pain - now epigastric. Pepcid ordered, fentanyl and ultrasound. Greatly improved with treatment. Ultrasound signed out to Dr. Vee. Admit telemetry, Dr. Newman. Laboratory Tests Test 10/25/18 06:05 White Blood Count 9.9 K/UL (4.8-10.8) Red Blood Count 4.11 M/UL (4.20-5.40) L Hemoglobin 10.6 G/DL (12.0-16.0) L Hematocrit 32.4 % (37.0-47.0) L Mean Corpuscular Volume 79 FL (80-99) L Mean Corpuscular Hemoglobin 25.9 PG (27.0-31.0) L Mean Corpuscular Hemoglobin Concent 32.8 G/DL (32.0-36.0) Red Cell Distribution Width 14.8 % (11.6-14.8) Platelet Count 454 K/UL (150-450) H Mean Platelet Volume 5.4 FL (6.5-10.1) L Neutrophils (%) (Auto) 50.1 % (45.0-75.0) Lymphocytes (%) (Auto) 40.1 % (20.0-45.0) Monocytes (%) (Auto) 6.4 % (1.0-10.0) Eosinophils (%) (Auto) 2.3 % (0.0-3.0) Basophils (%) (Auto) 1.0 % (0.0-2.0) Prothrombin Time 10.8 SEC (9.30-11.50) Prothrombin Time INR 1.0 (0.9-1.1) PTT 29 SEC (23-33) Sodium Level 135 MMOL/L (136-145) L Potassium Level 3.5 MMOL/L (3.5-5.1) Chloride Level 98 MMOL/L (98-107) Carbon Dioxide Level 28 MMOL/L (21-32) Anion Gap 9 mmol/L (5-15) Blood Urea Nitrogen 14 mg/dL (7-18) Creatinine 1.1 MG/DL (0.55-1.30) Estimate Glomerular Filtration Rate mL/min (>60) Glucose Level 138 MG/DL (74-106) H Lactic Acid Level 1.80 mmol/L (0.4-2.0) Calcium Level 9.5 MG/DL (8.5-10.1) Magnesium Level 1.7 MG/DL (1.8-2.4) L Total Bilirubin 0.1 MG/DL (0.2-1.0) L Aspartate Amino Transferase (AST) 14 U/L (15-37) L Alanine Aminotransferase (ALT) 16 U/L (12-78) Alkaline Phosphatase 88 U/L (46-116) Troponin I 0.004 ng/mL (0.000-0.056) Pro-B-Type Natriuretic Peptide 34 pg/mL (0-125) Total Protein 8.0 G/DL (6.4-8.2) Albumin 3.2 G/DL (3.4-5.0) L Globulin 4.8 g/dL Albumin/Globulin Ratio 0.7 (1.0-2.7) L Lipase 152 U/L (73-393) Serum Alcohol < 3 mg/dL EKG Diagnostic Results Rate: normal Rhythm: NSR ST Segments: no acute changes Rhythm Strip Diag. Results EP Interpretation: yes Rhythm: NSR, no PVC's, no ectopy Chest X-Ray Diagnostic Results Chest X-Ray Diagnostic Results : Chest X-Ray Ordered: Yes # of Views/Limited/Complete: 1 View Indication: Shortness of Breath EP Interpretation: Yes Interpretation: no effusion, no pneumothorax, other - Increased montano at the bases Impression: Other Electronically Signed by: Electronically signed by Dipak Michaud MD Other X-Ray Diagnostic Results Other X-Ray Diagnostic Results : X-Ray ordered: abd # of Views/Limited Vs Complete: 2 View Indication: Pain Interpretation: nonspecific bowel gas, no sbo, other - no masses Impression: Other Electronically Signed by: Electronically signed by Dipak Michaud MD CT/MRI/US Diagnostic Results CT/MRI/US Diagnostic Results : Imaging Test Ordered: u/s abd Impression Mild distention of the common bile duct with a diameter up to 8.1 mm. This is nonspecific and may be related to patient's age. No cholelithiasis or gallbladder wall thickening. No intrahepatic biliary ductal dilatation. If there is continued clinical concern, the biliary tree can be further evaluated with MRI/MRCP. Last Vital Signs Date Time Temp Pulse Resp B/P (MAP) Pulse Ox O2 Delivery O2 Flow Rate FiO2 10/25/18 09:24 98.2 82 20 120/59 97 Room Air 75 Status: improved Disposition: ADMITTED INPATIENT Condition: Serious Referrals: NOT CHOSEN IPA/,REFERRING (PCP) Dipak Michaud MD October 25, 2018 07:32
--- NOTE | 2018-10-25 07:38 | Diagnostic Imaging Report ---
EXAM: XR Chest, 1 View CLINICAL HISTORY: ABD PAIN TECHNIQUE: Frontal view of the chest. COMPARISON: 05/30/17 FINDINGS: Lungs: Diffuse increased interstitial markings with indistinctness. No dense consolidation. Low lung volume limit evaluation. Pleural space: Unremarkable. No pneumothorax. Heart: Mild enlargement of the cardiovascular silhouette, unchanged. Mediastinum: Unremarkable. Bones/joints: Unremarkable. Vasculature: Mildly tortuous thoracic aorta, unchanged. IMPRESSION: Cardiomegaly. Mild edema
--- NOTE | 2018-10-25 07:40 | Diagnostic Imaging Report ---
EXAM: XR Abdomen, 2 Views CLINICAL HISTORY: ABD PAIN TECHNIQUE: Frontal view of the abdomen/pelvis. Supine images. COMPARISON: No relevant prior studies available. FINDINGS: Intraperitoneal space: Evaluation for free air limited on this portable supine views. Gastrointestinal tract: Overall paucity of small bowel gas, nonspecific. Moderate to large retained stool seen in the large bowel. Organs: No abnormal calcification in the expected region of the renal shadows bilaterally. Bones/joints: Status post bilateral hip arthroplasty. Tubes, lines and devices: Overlying chest leads obscure portion of the lower pelvis. IMPRESSION: Nonspecific bowel gas pattern with moderate retained stool.
[2018-10-25] MEDS ORDERED: fentaNYL 100 mcg/2 mL IV ONE (07:45)
--- NOTE | 2018-10-25 07:58 | NUR ---
ED Nurse Note: Pt received from JULIA Stuart. Pt is in bed sleeping, easy to be awaken by voice. AOx4, stated medial abdominal discomfort "gas" was 8/10, ERMD aware. Still complains of "hypoventilation". RR 18bpm SAT 100% RA. IV 20G on L AC initiated by JULIA Stuart and flushes well.
[2018-10-25 08:13] VITALS: BP 120/59
[2018-10-25] MEDS ORDERED: Miralax 17gm pkt ORAL PRN (09:00)
[2018-10-25] MEDS ORDERED: Morphine Sulfate 2mg/ml Inj(IV/IM USE ONLY) IVP PRN (09:00)
[2018-10-25] MEDS ORDERED: Nitroglycerin Subl 0.4mg tab SL PRN (09:00)
[2018-10-25] MEDS: Heparin 5000 units/ml inj SUBQ SCH ×2 (09:05→21:29)
--- NOTE | 2018-10-25 09:23 | NUR ---
ED Nurse Note: Report given to JULIA Gómez. Pt to be transfered to room 205-2 on [facility] per protocol with all belongings.
[2018-10-25 09:47] VITALS: BP 130/57
--- NOTE | 2018-10-25 09:47 | NUR ---
NURSE NOTES: Pt received from JULIA Cerrato alert and oriented x4 with no acute s/s of distress. Pt states that there is abdominal discomfort but no pain. IV site asymptomatic and patent on L ac 20g, saline lock. Belongings all with patient upon admission - ID in her possession, as well as necklace, bracelet, watch, and 5 rings. No hernandez upon admission. Per pt, she received her flu vax on April 2018 and pneumonia vax this year, will update chart accordingly. Pt ambulates with mild assist, pt's cane at bedside for stability. night monitor on - Sinus Rhythm with 1AVB. Bed in lowest position, bed alarm on. Belongings and call light within reach.
--- NOTE | 2018-10-25 10:15 | NUR ---
NURSE NOTES: When prompted for med recon, pt stated, "I don't have the list with me but you can call my pharmacy - [facility] on [address], they have all my medications." RN called and spoke with Pzu from [facility] pharmacy ([address] - [phone]). Per Pzu, she will fax over the paperwork.
--- NOTE | 2018-10-25 10:25 | NUR ---
CASE MANAGEMENT: INITIAL REVIEW 10/25/2018 73 YO F BIBA FROM HOME CC: INCREASE GAS PMHx: HTN. DM. SI:ABD PAIN. T 98.2 HR 82 RR 16 B/P 92/52 SATS 100% ON RA NA 135 GLU 138 MG 1.7 TBILI 0.1 AST 14 IS: REGLAN IV X1 PEPCID IV X1 BENADRYL IV X1 NS BOLUS X1 ABD XRAY IMPRESSION: Nonspecific bowel gas pattern with moderate retained stool. CXR: IMPRESSION: Cardiomegaly. Mild edema. PATIENT ADMITTED TO TELE 10/25/2018 @ 0708 DCP: PATIENT TO BE DISCHARGED TO HOME ONCE MEDICALLY CLEARED. PLAN OF CARE: GI CONSULT
--- NOTE | 2018-10-25 11:10 | Diagnostic Imaging Report ---
EXAM: US Abdomen Complete CLINICAL HISTORY: ABD PAIN TECHNIQUE: Real-time ultrasound of the abdomen (complete) with image documentation. COMPARISON: No relevant prior studies available. FINDINGS: Liver: Liver diameter 19.5 cm. No visible parenchymal lesions. No intrahepatic biliary ductal dilatation. Gallbladder: Unremarkable. No gallstones. No wall thickening. No pericholecystic fluid. Common bile duct: Common bile duct is mildly distended with a diameter up to 8.1 mm. Pancreas: Unremarkable as visualized. Pancreatic body and tail are obscured by bowel gas. Kidneys: Right kidney length of 11.8 cm. Left kidney length of 11.2 cm. Normal cortical thickness. No visible stones. No hydronephrosis. Spleen: Spleen length of 7.1 cm, within normal limits. Aorta: Unremarkable. Visualized portions appear unremarkable without evidence of aneurysm. Inferior vena cava: Unremarkable. IMPRESSION: Mild distention of the common bile duct with a diameter up to 8.1 mm. This is nonspecific and may be related to patient's age. No cholelithiasis or gallbladder wall thickening. No intrahepatic biliary ductal dilatation. If there is continued clinical concern, the biliary tree can be further evaluated with MRI/MRCP.
[2018-10-25] MEDS: D5 1/2NS 1,000 ML IV SCH ×2 (11:49→23:50)
[2018-10-25 12:00] VITALS: BP 121/60
--- NOTE | 2018-10-25 12:45 | NUR ---
NURSE NOTES: Med Recon received from [facility] pharmacy, placed in chart. Med Recon updated accordingly.
[2018-10-25] MEDS ORDERED: MELOXICAM15 MG PO (13:03)
[2018-10-25] MEDS ORDERED: VENTOLIN HFA18 GM INH (13:03)
[2018-10-25] MEDS ORDERED: AMLODIPINE BESY10 MG ORAL (13:03)
[2018-10-25] MEDS ORDERED: METFORMIN HCL1000 M1 ORAL (13:03)
[2018-10-25] MEDS ORDERED: ATORVASTATIN CA40 MG ORAL (13:03)
[2018-10-25] MEDS ORDERED: GLIPIZIDE5 MG ORAL (13:03)
[2018-10-25] MEDS ORDERED: NICODERM CQ1 EAC1 TD (13:03)
[2018-10-25] MEDS ORDERED: TRAZODONE HCL150 MG ORAL (13:03)
[2018-10-25 16:00] VITALS: BP 138/69
--- NOTE | 2018-10-25 16:34 | NUR ---
NURSE NOTES: Endorsed Magnesium of 1.[address] Christian[address] Per Dr. Christian, he will input orders upon assessing pt at bedside.
--- NOTE | 2018-10-25 17:09 | History & Physical ---
History and Physical History & Physicial Dictated for Int Med-Dr Newman no. [id number]. Cesar Christian MD October 25, 2018 17:09
[2018-10-25] MEDS: Pantoprazole Inj IVP SCH (17:45)
[2018-10-25] MEDS: Magnesium Oxide 400mg tab ORAL SCH (17:45)
--- NOTE | 2018-10-25 18:00 | History and Physical Report ---
DATE OF ADMISSION: 10/25/2018 CHIEF COMPLAINT: The patient is a 73-year-old female, presents with chief complaint of shortness of breath and abdominal bloating. HISTORY OF PRESENT ILLNESS: Began FridayOctober 24, 2018. The patient states she had two beers for "Mother's Day". The patient began to experience abdominal bloating. The patient then experienced shortness of breath. The patient presented to [facility] emergency room. The patient was admitted with shortness of breath and abdominal pain to rule out pancreatitis. REVIEW OF SYSTEMS: CONSTITUTIONAL: The patient denies weight loss or weight gain. The patient denies fevers or chills. HEENT: The patient denies ear or throat pain. The patient denies headache. CARDIOVASCULAR: The patient denies palpitations or chest pain. CHEST: The patient denies wheeze or shortness of breath. ABDOMEN: The patient complains of abdominal bloating and right upper quadrant pain as above. The patient denies nausea, vomiting, diarrhea, or constipation. GENITOURINARY: The patient denies dysuria or increased frequency of urination. NEUROMUSCULAR: The patient denies seizures or generalized weakness. PAST MEDICAL HISTORY: Significant for: 1. Type 2 diabetes. 2. Hypertension. 3. Hypercholesterolemia. PAST SURGICAL HISTORY: The patient denies. CURRENT MEDICATIONS: 1. Amlodipine 5 mg p.o. daily. 2. Ventolin two puffs p.o. q.6 hours p.r.n. 3. Atorvastatin 40 mg p.o. at bedtime. 4. Calcium carbonate 500 mg p.o. twice daily. 5. Glipizide 5 mg p.o. one tablet p.o. twice daily. 6. Metformin 1000 mg p.o. twice daily. 7. Ranitidine 150 mg p.o. at bedtime. 8. Trazodone 50 mg p.o. at bedtime. ALLERGIES: To JM inhibitors. SOCIAL HISTORY: The patient is single and lives alone. The patient admits to tobacco use one-third pack per day. The patient admits to alcohol use socially. PHYSICAL EXAMINATION: VITAL SIGNS: Temperature 98.2, respirations 20, pulse 75, and blood pressure 128/59. GENERAL: The patient is well-developed, well-nourished female, in no apparent distress. HEENT: Eyes, pupils equal and responsive to light and accommodation. Extraocular movements are intact. NECK: Supple without lymphadenopathy. CHEST: Lungs are clear to auscultation bilaterally without wheezes or rales. CARDIOVASCULAR: Regular rhythm and rate. S1 and S2 are normal without murmurs, rubs, or gallops. ABDOMEN: Soft, nontender, and nondistended. Positive bowel sounds. No evidence of hepatosplenomegaly. Currently, no rebound or guarding noted. EXTREMITIES: Negative for clubbing, cyanosis, or edema. RECTAL: Refused. GENITAL: Refused. NEUROLOGIC: Cranial nerves II through XII are grossly intact without focal deficits. Motor strength is 5/5 bilaterally. Deep tendon reflexes are 2+ plantar. LABORATORY STUDIES: WBC 9.9, hemoglobin 10.6, hematocrit 32.4, and platelets 454,000. Sodium 135, potassium 3.5, chloride 98, CO2 is 28, BUN 14, creatinine 1.1, glucose 138. Troponin 0.004. Chest x-ray was reported as cardiomegaly and mild edema. An abdominal ultrasound was reported as within normal limits. An abdominal series x-ray revealed nonspecific gas bowel pattern without obstruction. ASSESSMENT: This is a 73-year-old female. 1. Abdominal pain. 2. Shortness of breath. 3. Diabetes type 2. 4. Hypertension. 5. Hypercholesterolemia. TREATMENT: 1. Abdominal pain - a Gastroenterology consultation has been obtained with Dr. Kane Hargrove. We will follow recommendations of Gastroenterology. 2. Shortness of breath. This may be secondary to abdominal distention as above. 3. Diabetes type 2. Continue metformin and glipizide as above. A regular insulin sliding scale has been instituted. 4. Hypertension. Continue amlodipine as above. 5. Hypercholesterolemia. Continue atorvastatin as above. Cesar Christian M.D. DR: IVONE/JACKSON JOB#: [id number] CC:
--- NOTE | 2018-10-25 19:15 | NUR ---
HAND-OFF: Report given to JULIA Coles. No acute s/s of distress noted.
[2018-10-25 20:00] VITALS: BP 132/60
[2018-10-26] VITALS: BP 98/62
[2018-10-26 04:00] VITALS: BP 128/65
[2018-10-26 06:00] LABS: BASOPHILS % (AUTO) 1.1 % (0.0-2.0); EOSINOPHILS % (AUTO) 2.4 % (0.0-3.0); HEMATOCRIT 32.1 % (37.0-47.0); HEMOGLOBIN 10.3 G/DL (12.0-16.0); LYMPHOCYTES % (AUTO) 35.9 % (20.0-45.0); MEAN CORPUSCULAR VOLUME 79 FL (80-99); MONOCYTES % (AUTO) 6.4 % (1.0-10.0); NEUTROPHILS % (AUTO) 54.3 % (45.0-75.0); PLATELET COUNT 386 K/UL (150-450); RED BLOOD COUNT 4.07 M/UL (4.20-5.40); WHITE BLOOD COUNT 7.3 K/UL (4.8-10.8)
[2018-10-26 06:17] LABS: ALANINE AMINOTRANSFERASE 17 U/L (12-78); ALBUMIN 3.1 G/DL (3.4-5.0); ALBUMIN/GLOBULIN RATIO 0.7 (1.0-2.7); ALKALINE PHOSPHATASE 83 U/L (46-116); AMYLASE 46 U/L (25-115); ANION GAP 9 mmol/L (5-15); ASPARTATE AMINO TRANSFERASE 14 U/L (15-37); BILIRUBIN,TOTAL 0.2 MG/DL (0.2-1.0); BLOOD UREA NITROGEN 9 mg/dL (7-18); CALCIUM 9.5 MG/DL (8.5-10.1); CARBON DIOXIDE 24 MMOL/L (21-32); CHLORIDE 99 MMOL/L (98-107); CREATININE 1.1 MG/DL (0.55-1.30); POTASSIUM 3.9 MMOL/L (3.5-5.1); SODIUM 132 MMOL/L (136-145)
--- NOTE | 2018-10-26 07:50 | NUR ---
NURSE NOTES: Received report from Sharyn DUMONT. aox4, still c/o abd discomfort. Bed in lowest position and locked. 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 IV site in LAC 20g intact patent running with D5 1/2NS @75ml/hr. Pt walking with cane. Will continue to plan of care.
[2018-10-26 08:00] VITALS: BP 121/55
--- NOTE | 2018-10-26 08:02 | NUR ---
HAND-OFF: Report given to JULIA Angel. Pt stable.
[2018-10-26] MEDS: Heparin 5000 units/ml inj SUBQ SCH ×2 (08:26→20:11)
[2018-10-26] MEDS: Magnesium Oxide 400mg tab ORAL SCH ×3 (08:26→18:19)
[2018-10-26] MEDS: Pantoprazole Inj IVP SCH (08:26)
--- NOTE | 2018-10-26 09:56 | GI Initial Consult Note ---
History of Present Illness General Date patient seen: October 26, 2018 Time patient seen: 09:51 Reason for Hospitalization: Gastrointestinal Illness Referring physician: BARBARA MORRIS Reason for Consultation: Abdominal pain Present Illness HPI Patient presents with severe right upper quadrant pain radiating to her. It began after drinking 2 beers last night. Last time she drank beer a year ago she did not have this problem. She denies any vomiting. The pain is causing her to feel short of breath. The patient is diabetic and her blood sugars of been well controlled. She denies diarrhea. The pain is rated 8/10 at this time. She feels that she was able to take some soda that she would be able to get relief. She feels this is gas. She's never had pain like this before. She doesn't know she has gallstones. She's never had abdominal surgery in the past. GI consulted for abdominal pain. Patient was seen, awake alert and oriented x4 no apparent distress. Denied any nausea vomiting or diarrhea. Patient has complaint of generalized abdominal pain, which she stated it has improved. Abdomen is soft, nondistended. KUB performed in the emergency room noted that the patient had moderate stool retained. Patient states that she had a bowel movement last night and also this morning. An abdominal ultrasound was also done, noted with common bile duct dilation of 8 mm. Labs reviewed; hemoglobin of 10.3, no transaminitis, lipase within normal limits. The patient has history of colonoscopy greater than 5 years ago. No history of endoscopy. She was admitted May 2017 with these discharge dx: 1. Angioedema secondary to JM, resolved. 2. Tongue swelling, resolved. 3. Hypertension. 4. Diabetes. 5. Obesity. 6. Anemia. 7. Hyponatremia likely secondary to mild dehydration. Home Meds Active Scripts Ranitidine Hcl* (ZANTAC*) 150 Mg Tablet, 150 MG ORAL BEDTIME, #5 TAB Prov:Latanya Swanson NP 05/31/17 Cetirizine Hcl (CETIRIZINE HCL) 10 Mg Tablet, 10 MG ORAL DAILY, #5 TAB Prov:Latanya Swanson NP 05/31/17 Amlodipine Besylate (Norvasc) 5 Mg Tablet, 5 MG ORAL DAILY, #30 TAB Prov:Latanya Swanson NP 05/31/17 Epinephrine (Epipen 2-Arvind) 0.3 Mg/0.3 Ml Auto.injct, 0.3 MG IM PRN, #1 EA Prov:Latanya Swanson BILLET CUTTER 05/31/17 Reported Medications Nicotine 14MG Patch* (NICODERM CQ 14MG*) 1 Each Patch.td24, 1 EACH TD DAILY, EA 10/25/18 Atorvastatin Calcium* (ATORVASTATIN CALCIUM*) 40 Mg Tablet, 40 MG ORAL BEDTIME, TAB 10/25/18 Trazodone* (TRAZODONE*) 150 Mg Tablet, 50 MG ORAL BEDTIME PRN for Insomnia, TAB 10/25/18 Metformin Hcl* (METFORMIN HCL*) 1,000 Mg Tablet, 1000 MG ORAL BID, TAB 10/25/18 Glipizide* (GLIPIZIDE*) 5 Mg Tablet, 5 MG ORAL BIDAC, TAB 10/25/18 Amlodipine Besylate* (AMLODIPINE BESYLATE*) 10 Mg Tablet, 10 MG ORAL DAILY, TAB 10/25/18 Albuterol Sulfate (VENTOLIN HFA) 18 Gm Hfa.aer.ad, 2 PUFFS INH EVERY 6 HOURS PRN for Shortness of Breath, #18 GM 0 Refills 10/25/18 Meloxicam* (MELOXICAM*) 15 Mg Tablet, 15 MG PO DAILY, TAB 10/25/18 Prednisone (PREDNISONE) 5 Mg Tab.ds.pk, 5 MG PO for 2 Days, #2 PACK 05/31/17 Prednisone (PREDNISONE) 10 Mg Tab.ds.pk, 10 MG PO for Taper for 3 Days, #3 PACK prednisone 10 mg oral daily for 3 days. than prednisone 5 mg oral for 2 days than stop. 05/31/17 Diphenhydramine Hcl (BANOPHEN) 25 Mg Capsule, 25 MG PO Q6HR PRN for Per rx protocol, CAP 05/30/17 Calcium Carbonate (CALCIUM) 600 Mg Tablet, 600 MG PO BID, TAB 05/25/15 Ascorbic Acid (VITAMIN C) 1,000 Mg Tablet, 1000 MG PO BID, TAB 05/25/15 Cholecalciferol (Vitamin D3)* (VITAMIN D*) 1,000 Unit Tablet, 2000 UNITS ORAL TWICE A DAY, #60 TAB 0 Refills 05/25/15 Ferrous Sulfate* (FERROUS SULFATE*) 325 Mg Tablet, 325 MG ORAL THREE TIMES A DAY , #90 TAB 0 Refills 05/25/15 Atorvastatin Calcium* (ATORVASTATIN CALCIUM*) 40 Mg Tablet, 40 MG ORAL BEDTIME, TAB 05/25/15 Metformin Hcl* (METFORMIN HCL*) 500 Mg Tablet, 500 MG ORAL TWICE A DAY, TAB 05/25/15 [pt to bring list] No Conflict Check 05/19/15 Med list reviewed/reconciled: Yes Allergies: Coded Allergies: JM INHIBITORS (Verified Allergy, Severe, Anaphylaxis, 05/31/17) COPIED FROM UNCODED SECTION Patient History History Provided By: Patient, Medical Record PMH Narrative Past Medical History: see triage record Social History: Denies: smoking Social History Narrative at home Reviewed Nursing Documentation: PMH: Agreed; PSxH: Agreed Nursing Documentation-PMH Past Medical History: No History, Except For Hx Cardiac Problems: Yes Hx Hypertension: Yes Hx Diabetes: Yes Hx Cancer: No Hx Gastrointestinal Problems: No Hx Neurological Problems: No Social History: Reports: alcohol use Review of Systems All Other Systems: negative except mentioned in HPI Physical Exam Vital Signs Date Time Temp Pulse Resp B/P (MAP) Pulse Ox O2 Delivery O2 Flow Rate FiO2 10/25/18 05:43 98.2 82 16 100 Room Air 10/25/18 05:47 92/52 Sp02 EP Interpretation: reviewed, normal Labs Laboratory Tests Test 10/26/18 05:20 White Blood Count 7.3 K/UL (4.8-10.8) Red Blood Count 4.07 M/UL (4.20-5.40) L Hemoglobin 10.3 G/DL (12.0-16.0) L Hematocrit 32.1 % (37.0-47.0) L Mean Corpuscular Volume 79 FL (80-99) L Mean Corpuscular Hemoglobin 25.3 PG (27.0-31.0) L Mean Corpuscular Hemoglobin Concent 32.1 G/DL (32.0-36.0) Red Cell Distribution Width 15.0 % (11.6-14.8) H Platelet Count 386 K/UL (150-450) Mean Platelet Volume 5.5 FL (6.5-10.1) L Neutrophils (%) (Auto) 54.3 % (45.0-75.0) Lymphocytes (%) (Auto) 35.9 % (20.0-45.0) Monocytes (%) (Auto) 6.4 % (1.0-10.0) Eosinophils (%) (Auto) 2.4 % (0.0-3.0) Basophils (%) (Auto) 1.1 % (0.0-2.0) Activated Partial Thromboplast Time 31 SEC (23-33) Sodium Level 132 MMOL/L (136-145) L Potassium Level 3.9 MMOL/L (3.5-5.1) Chloride Level 99 MMOL/L (98-107) Carbon Dioxide Level 24 MMOL/L (21-32) Anion Gap 9 mmol/L (5-15) Blood Urea Nitrogen 9 mg/dL (7-18) Creatinine 1.1 MG/DL (0.55-1.30) Estimat Glomerular Filtration Rate mL/min (>60) Glucose Level 143 MG/DL (74-106) H Calcium Level 9.5 MG/DL (8.5-10.1) Total Bilirubin 0.2 MG/DL (0.2-1.0) Aspartate Amino Transf (AST/SGOT) 14 U/L (15-37) L Alanine Aminotransferase (ALT/SGPT) 17 U/L (12-78) Alkaline Phosphatase 83 U/L (46-116) Total Protein 7.7 G/DL (6.4-8.2) Albumin 3.1 G/DL (3.4-5.0) L Globulin 4.6 g/dL Albumin/Globulin Ratio 0.7 (1.0-2.7) L Amylase Level 46 U/L (25-115) Lipase 129 U/L (73-393) General Appearance: well appearing, no apparent distress, alert Head: normocephalic EENT: PERRL/EOMI, normal ENT inspection Neck: supple Respiratory: normal breath sounds, no respiratory distress Cardiovascular: normal rate Gastrointestinal: normal inspection, non tender, soft, normal bowel sounds, non -distended Rectal: deferred Genitourinary: no CVA tenderness Musculoskeletal: normal inspection, back normal Neurologic: normal inspection, alert, oriented x3, responsive Psychiatric: normal inspection, judgement/insight normal, memory normal Skin: normal inspection, normal color, no rash, warm/dry, palpation normal, well hydrated Lymphatic: normal inspection, no adenopathy Current Medications Current Medications Medications (Trade) Dose Ordered Sig/Naomi Route PRN Reason Start Time Stop Time Status Last Admin Dose Admin Acetaminophen (Tylenol) 650 mg Q4H PRN ORAL T>100.5 10/25/18 09:00 11/24/18 08:59 Dextrose (Dextrose 50%) 25 ml Q30M PRN IV Hypoglycemia 10/25/18 09:00 11/24/18 08:59 Dextrose (Dextrose 50%) 50 ml Q30M PRN IV Hypoglycemia 10/25/18 09:00 11/24/18 08:59 Dextrose/Sodium Chloride 1,000 ml @ 75 mls/hr [id number] IV 10/25/18 10:30 11/24/18 10:29 10/25/18 11:49 Diphenhydramine HCl (Benadryl) 25 mg Q6H PRN ORAL Itching/Pruritis 10/25/18 09:00 11/24/18 08:59 Heparin Sodium (Porcine) (Heparin 5000 units/ml) 5,000 units EVERY 12 HOURS SUBQ 10/25/18 09:00 11/24/18 08:59 10/26/18 08:26 Magnesium Oxide (Mag-Ox 400mg) 400 mg THREE TIMES A DAY ORAL 10/25/18 18:00 10/26/18 18:00 10/26/18 08:26 Morphine Sulfate (Morphine Sulfate) 2 mg Q4H PRN IVP Severe Pain (Pain Scale 7-10) 10/25/18 09:00 11/01/18 08:59 10/26/18 00:36 Nitroglycerin (Ntg) 0.4 mg Q5MIN X 3 DOSES PRN SL Prn Chest Pain 10/25/18 09:00 11/24/18 08:59 Ondansetron HCl (Zofran) 4 mg Q6H PRN IVP Nausea & Vomiting 10/25/18 09:00 11/24/18 08:59 Pantoprazole (Protonix) 40 mg DAILY IVP 10/25/18 16:00 11/24/18 15:59 10/26/18 08:26 Polyethylene Glycol (Miralax) 17 gm DAILYPRN PRN ORAL Constipation 10/25/18 09:00 11/24/18 08:59 Temazepam (Restoril) 15 mg HSPRN PRN ORAL Insomnia 10/25/18 21:00 11/01/18 20:59 GI: Plan Problems: (1) Anemia (2) Abdominal pain (3) Right upper quadrant pain Plan Abdominal ultrasound reviewed, common bile duct dilation 8 mm KUB reviewed, moderate stool retained EGD/colonoscopy scheduled for tomorrow. No plans for MRCP at this time given no transaminitis N.p.o. at midnight Hold all blood thinners Monitor H&H, as needed transfusions PPI Zofran as needed Pain management Bowel regimen We will follow with additional recommendations postprocedure Discussed with Dr. Hargrove. Thank you for this patient referral, we will follow. The patient was seen and examined at bedside and all new and available data was reviewed in the patients chart. I agree with the above findings, impression and plan. (Patient seen earlier today. Signature stamp does not reflect patient encounter time.). - MD Rupa SuarezSierra TucsonMary AKINS October 26, 2018 09:56
--- NOTE | 2018-10-26 11:27 | NUR ---
CASE MANAGEMENT:REVIEW 10/26/18 SI: ANEMIA. RUQ ABD PAIN. 97.9 71 21 121/55 100% ON RA H/H-10.3/32.1 NA-132 IS: MAG OXIDE PO TID IV PROTONIX QD IVF@75/HR HEPARIN SQ Q12 IV MORPHINE Q4HRS PRN : TELEMETRY STATUS DCP: FROM HOME PLAN: EGD SCHEDULED FOR TOMORROW
[2018-10-26 12:00] VITALS: BP 108/57
--- NOTE | 2018-10-26 12:31 | Internal Med Progress Note ---
Subjective Date of Service: October 26, 2018 Physician Name Cesar Christian Attending Physician Mehran Newman MD Current Medications Medications (Trade) Dose Ordered Sig/Naomi Route PRN Reason Start Time Stop Time Status Last Admin Dose Admin Acetaminophen (Tylenol) 650 mg Q4H PRN ORAL T>100.5 10/25/18 09:00 11/24/18 08:59 Dextrose (Dextrose 50%) 25 ml Q30M PRN IV Hypoglycemia 10/25/18 09:00 11/24/18 08:59 Dextrose (Dextrose 50%) 50 ml Q30M PRN IV Hypoglycemia 10/25/18 09:00 11/24/18 08:59 Dextrose/Sodium Chloride 1,000 ml @ 75 mls/hr [id number] IV 10/25/18 10:30 11/24/18 10:29 10/25/18 11:49 Diphenhydramine HCl (Benadryl) 25 mg Q6H PRN ORAL Itching/Pruritis 10/25/18 09:00 11/24/18 08:59 Heparin Sodium (Porcine) (Heparin 5000 units/ml) 5,000 units EVERY 12 HOURS SUBQ 10/25/18 09:00 11/24/18 08:59 10/26/18 08:26 Magnesium Oxide (Mag-Ox 400mg) 400 mg THREE TIMES A DAY ORAL 10/25/18 18:00 10/26/18 18:00 10/26/18 08:26 Morphine Sulfate (Morphine Sulfate) 2 mg Q4H PRN IVP Severe Pain (Pain Scale 7-10) 10/25/18 09:00 11/01/18 08:59 10/26/18 00:36 Nitroglycerin (Ntg) 0.4 mg Q5MIN X 3 DOSES PRN SL Prn Chest Pain 10/25/18 09:00 11/24/18 08:59 Ondansetron HCl (Zofran) 4 mg Q6H PRN IVP Nausea & Vomiting 10/25/18 09:00 11/24/18 08:59 Pantoprazole (Protonix) 40 mg DAILY IVP 10/25/18 16:00 11/24/18 15:59 10/26/18 08:26 Polyethylene Glycol (Miralax) 17 gm DAILYPRN PRN ORAL Constipation 10/25/18 09:00 11/24/18 08:59 Temazepam (Restoril) 15 mg HSPRN PRN ORAL Insomnia 10/25/18 21:00 11/01/18 20:59 Allergies: Coded Allergies: JM INHIBITORS (Verified Allergy, Severe, Anaphylaxis, 05/31/17) COPIED FROM UNCODED SECTION ROS Limited/Unobtainable: No Constitutional: Reports: no symptoms HEENT: Reports: no symptoms Cardiovascular: Reports: no symptoms Respiratory: Reports: no symptoms Gastrointestinal/Abdominal: Reports: abdomen distended, abdominal pain Genitourinary: Reports: no symptoms Neurologic/Psychiatric: Reports: no symptoms Subjective 73 YO F admitted with abdominal pain and shortness of breath. Cover for Int nuris -Dr Newman. Objective Last Vital Signs Date Time Temp Pulse Resp B/P (MAP) Pulse Ox O2 Delivery O2 Flow Rate FiO2 10/26/18 12:00 63 10/26/18 09:00 Room Air 10/26/18 08:00 97.9 21 121/55 (77) 100 Laboratory Tests Test 10/26/18 05:20 White Blood Count 7.3 K/UL (4.8-10.8) Red Blood Count 4.07 M/UL (4.20-5.40) L Hemoglobin 10.3 G/DL (12.0-16.0) L Hematocrit 32.1 % (37.0-47.0) L Mean Corpuscular Volume 79 FL (80-99) L Mean Corpuscular Hemoglobin 25.3 PG (27.0-31.0) L Mean Corpuscular Hemoglobin Concent 32.1 G/DL (32.0-36.0) Red Cell Distribution Width 15.0 % (11.6-14.8) H Platelet Count 386 K/UL (150-450) Mean Platelet Volume 5.5 FL (6.5-10.1) L Neutrophils (%) (Auto) 54.3 % (45.0-75.0) Lymphocytes (%) (Auto) 35.9 % (20.0-45.0) Monocytes (%) (Auto) 6.4 % (1.0-10.0) Eosinophils (%) (Auto) 2.4 % (0.0-3.0) Basophils (%) (Auto) 1.1 % (0.0-2.0) Activated Partial Thromboplast Time 31 SEC (23-33) Sodium Level 132 MMOL/L (136-145) L Potassium Level 3.9 MMOL/L (3.5-5.1) Chloride Level 99 MMOL/L (98-107) Carbon Dioxide Level 24 MMOL/L (21-32) Anion Gap 9 mmol/L (5-15) Blood Urea Nitrogen 9 mg/dL (7-18) Creatinine 1.1 MG/DL (0.55-1.30) Estimat Glomerular Filtration Rate mL/min (>60) Glucose Level 143 MG/DL (74-106) H Calcium Level 9.5 MG/DL (8.5-10.1) Total Bilirubin 0.2 MG/DL (0.2-1.0) Aspartate Amino Transf (AST/SGOT) 14 U/L (15-37) L Alanine Aminotransferase (ALT/SGPT) 17 U/L (12-78) Alkaline Phosphatase 83 U/L (46-116) Total Protein 7.7 G/DL (6.4-8.2) Albumin 3.1 G/DL (3.4-5.0) L Globulin 4.6 g/dL Albumin/Globulin Ratio 0.7 (1.0-2.7) L Amylase Level 46 U/L (25-115) Lipase 129 U/L (73-393) Intake and Output 10/25/18 10/26/18 19:00 07:00 Intake Total 2150 ml Balance 2150 ml Intake Oral 300 ml IV Total 1850 ml # Voids 5 2 Objective PHYSICAL EXAMINATION: GENERAL: The patient is well-developed, well-nourished female, in no apparent distress. HEENT: Eyes, pupils equal and responsive to light and accommodation. Extraocular movements are intact. NECK: Supple without lymphadenopathy. CHEST: Lungs are clear to auscultation bilaterally without wheezes or rales. CARDIOVASCULAR: Regular rhythm and rate. S1 and S2 are normal without murmurs, rubs, or gallops. ABDOMEN: Soft, nontender, and nondistended. Positive bowel sounds. No evidence of hepatosplenomegaly. Currently, no rebound or guarding noted. EXTREMITIES: Negative for clubbing, cyanosis, or edema. RECTAL: Refused. GENITAL: Refused. NEUROLOGIC: Cranial nerves II through XII are grossly intact without focal deficits. Motor strength is 5/5 bilaterally. Deep tendon reflexes are 2+ plantar. Assessment/Plan Assessment/Plan ASSESSMENT: This is a 73-year-old female. 1. Abdominal pain. 2. Shortness of breath. 3. Diabetes type 2. 4. Hypertension. 5. Hypercholesterolemia. TREATMENT: 1. Abdominal pain - a Gastroenterology consultation has been obtained with Dr. Kane Hargrove. We will follow recommendations of Gastroenterology. Ultrasound of abdomen=neg cholelithiasis/cholecystitis. 2. Shortness of breath. This may be secondary to abdominal distention as above. 3. Diabetes type 2. Continue metformin and glipizide as above. A regular insulin sliding scale has been instituted. 4. Hypertension. Continue amlodipine as above. 5. Hypercholesterolemia. Continue atorvastatin as above. 6. Endoscopy scheduled for 10/27/18 Cesar Christian MD October 26, 2018 12:30
[2018-10-26] MEDS: D5 1/2NS 1,000 ML IV SCH (12:44)
--- NOTE | 2018-10-26 13:40 | Consultation ---
History of Present Illness General Date patient seen: October 26, 2018 Chief Complaint: Gastrointestinal Illness Referring physician: BARBARA MORRIS Reason for Consultation: Abdominal pain Present Illness HPI 73 year old female with hx of Hypertension, Diabetes.presented to ER with severe right upper quadrant pain radiating to her back It began after drinking 2 beers two nights ago. She denied any vomiting. The pain is causing her to feel short of breath. She is admitted to telemetry for further work up. Allergies: Coded Allergies: JM INHIBITORS (Verified Allergy, Severe, Anaphylaxis, 05/31/17) COPIED FROM UNCODED SECTION Medication History Scheduled Amlodipine Besylate (Norvasc), 5 MG ORAL DAILY Amlodipine Besylate* (Amlodipine Besylate*), 10 MG ORAL DAILY, (Reported) Ascorbic Acid (Vitamin C), 1,000 MG PO BID, (Reported) Atorvastatin Calcium* (Atorvastatin Calcium*), 40 MG ORAL BEDTIME, (Reported) Atorvastatin Calcium* (Atorvastatin Calcium*), 40 MG ORAL BEDTIME, (Reported) Calcium Carbonate (Calcium), 600 MG PO BID, (Reported) Cetirizine Hcl (Cetirizine Hcl), 10 MG ORAL DAILY Cholecalciferol (Vitamin D3)* (Vitamin D*), 2,000 UNITS ORAL TWICE A DAY, ( Reported) Epinephrine (Epipen 2-Arvind), 0.3 MG IM PRN Ferrous Sulfate* (Ferrous Sulfate*), 325 MG ORAL THREE TIMES A DAY, (Reported) Glipizide* (Glipizide*), 5 MG ORAL BIDAC, (Reported) Meloxicam* (Meloxicam*), 15 MG PO DAILY, (Reported) Metformin Hcl* (Metformin Hcl*), 500 MG ORAL TWICE A DAY, (Reported) Metformin Hcl* (Metformin Hcl*), 1,000 MG ORAL BID, (Reported) Nicotine 14MG Patch* (Nicoderm Cq 14MG*), 1 EACH TD DAILY, (Reported) Ranitidine Hcl* (Zantac*), 150 MG ORAL BEDTIME Scheduled PRN Albuterol Sulfate (Ventolin Hfa), 2 PUFFS INH EVERY 6 HOURS PRN for Shortness of Breath, (Reported) Diphenhydramine Hcl (Banophen), 25 MG PO Q6HR PRN for Per rx protocol, (Reported ) Trazodone* (Trazodone*), 50 MG ORAL BEDTIME PRN for Insomnia, (Reported) Miscellaneous Medications Prednisone (Prednisone), 10 MG PO, (Reported) Prednisone (Prednisone), 5 MG PO, (Reported) [pt to bring list], (Reported) Patient History Healthcare decision maker Resuscitation status Advanced Directive on File Past Medical/Surgical History Past Medical/Surgical History: (1) Diabetes (2) HTN (hypertension) Review of Systems All Other Systems: negative except mentioned in HPI Physical Exam General Appearance: WD/WN, no apparent distress, mild distress Lines, tubes and drains: peripheral HEENT: normocephalic, atraumatic Neck: non-tender, normal alignment Respiratory/Chest: chest wall non-tender, lungs clear Breasts: no masses Cardiovascular/Chest: normal peripheral pulses Abdomen: normal bowel sounds, non tender Genitourinary/Rectal: normal genital exam Extremities: normal range of motion Skin Exam: normal pigmentation 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 Last 24 Hour Vital Signs Date Time Temp Pulse Resp B/P (MAP) Pulse Ox O2 Delivery O2 Flow Rate FiO2 10/26/18 12:00 97.2 66 20 108/57 (74) 96 10/26/18 12:00 63 10/26/18 09:00 Room Air 10/26/18 08:00 73 10/26/18 08:00 97.9 71 21 121/55 (77) 100 71 71 10/26/18 04:00 74 10/26/18 04:00 99.0 71 18 128/65 (86) 98 71 71 10/26/18 00:00 98.4 65 18 98/62 (74) 94 10/26/18 00:00 65 10/25/18 21:00 Room Air 10/25/18 20:00 97.9 75 18 132/60 (84) 98 75 75 10/25/18 16:00 61 10/25/18 16:00 98.0 71 20 138/69 (92) 96 71 71 Intake and Output 10/25/18 10/26/18 19:00 07:00 Intake Total 2150 ml Balance 2150 ml Intake Oral 300 ml IV Total 1850 ml # Voids 5 2 Laboratory Tests Test 10/26/18 05:20 White Blood Count 7.3 K/UL (4.8-10.8) Red Blood Count 4.07 M/UL (4.20-5.40) L Hemoglobin 10.3 G/DL (12.0-16.0) L Hematocrit 32.1 % (37.0-47.0) L Mean Corpuscular Volume 79 FL (80-99) L Mean Corpuscular Hemoglobin 25.3 PG (27.0-31.0) L Mean Corpuscular Hemoglobin Concent 32.1 G/DL (32.0-36.0) Red Cell Distribution Width 15.0 % (11.6-14.8) H Platelet Count 386 K/UL (150-450) Mean Platelet Volume 5.5 FL (6.5-10.1) L Neutrophils (%) (Auto) 54.3 % (45.0-75.0) Lymphocytes (%) (Auto) 35.9 % (20.0-45.0) Monocytes (%) (Auto) 6.4 % (1.0-10.0) Eosinophils (%) (Auto) 2.4 % (0.0-3.0) Basophils (%) (Auto) 1.1 % (0.0-2.0) Activated Partial Thromboplast Time 31 SEC (23-33) Sodium Level 132 MMOL/L (136-145) L Potassium Level 3.9 MMOL/L (3.5-5.1) Chloride Level 99 MMOL/L (98-107) Carbon Dioxide Level 24 MMOL/L (21-32) Anion Gap 9 mmol/L (5-15) Blood Urea Nitrogen 9 mg/dL (7-18) Creatinine 1.1 MG/DL (0.55-1.30) Estimat Glomerular Filtration Rate mL/min (>60) Glucose Level 143 MG/DL (74-106) H Calcium Level 9.5 MG/DL (8.5-10.1) Total Bilirubin 0.2 MG/DL (0.2-1.0) Aspartate Amino Transf (AST/SGOT) 14 U/L (15-37) L Alanine Aminotransferase (ALT/SGPT) 17 U/L (12-78) Alkaline Phosphatase 83 U/L (46-116) Total Protein 7.7 G/DL (6.4-8.2) Albumin 3.1 G/DL (3.4-5.0) L Globulin 4.6 g/dL Albumin/Globulin Ratio 0.7 (1.0-2.7) L Amylase Level 46 U/L (25-115) Lipase 129 U/L (73-393) Height (Feet): 5 Height (Inches): 8.00 Weight (Pounds): 213 Medications Current Medications Medications (Trade) Dose Ordered Sig/Naomi Route PRN Reason Start Time Stop Time Status Last Admin Dose Admin Acetaminophen (Tylenol) 650 mg Q4H PRN ORAL T>100.5 10/25/18 09:00 11/24/18 08:59 Bisacodyl (Dulcolax) 10 mg ONCE ONCE ORAL 10/26/18 16:00 10/26/18 16:01 Dextrose (Dextrose 50%) 25 ml Q30M PRN IV Hypoglycemia 10/25/18 09:00 11/24/18 08:59 Dextrose (Dextrose 50%) 50 ml Q30M PRN IV Hypoglycemia 10/25/18 09:00 11/24/18 08:59 Dextrose/Sodium Chloride 1,000 ml @ 75 mls/hr [id number] IV 10/25/18 10:30 11/24/18 10:29 10/26/18 12:44 Diphenhydramine HCl (Benadryl) 25 mg Q6H PRN ORAL Itching/Pruritis 10/25/18 09:00 11/24/18 08:59 Heparin Sodium (Porcine) (Heparin 5000 units/ml) 5,000 units EVERY 12 HOURS SUBQ 10/25/18 09:00 11/24/18 08:59 10/26/18 08:26 Magnesium Oxide (Mag-Ox 400mg) 400 mg THREE TIMES A DAY ORAL 10/25/18 18:00 10/26/18 18:00 10/26/18 12:44 Morphine Sulfate (Morphine Sulfate) 2 mg Q4H PRN IVP Severe Pain (Pain Scale 7-10) 10/25/18 09:00 11/01/18 08:59 10/26/18 00:36 Nitroglycerin (Ntg) 0.4 mg Q5MIN X 3 DOSES PRN SL Prn Chest Pain 10/25/18 09:00 11/24/18 08:59 Ondansetron HCl (Zofran) 4 mg Q6H PRN IVP Nausea & Vomiting 10/25/18 09:00 6/11/19 08:59 Pantoprazole (Protonix) 40 mg DAILY IVP 10/25/18 16:00 11/24/18 15:59 10/26/18 08:26 Polyethylene Glycol (Miralax) 17 gm DAILYPRN PRN ORAL Constipation 10/25/18 09:00 11/24/18 08:59 Polyethylene Glycol/ Electrolytes (Nulytely) 4,000 ml ONCE ONCE ORAL 10/26/18 16:00 10/26/18 16:01 Sodium Phosphate (Fleet's Sodium Phosl Enema) 133 ml ONCE ONCE RECTAL 10/26/18 23:00 10/26/18 23:01 Temazepam (Restoril) 15 mg HSPRN PRN ORAL Insomnia 10/25/18 21:00 11/01/18 20:59 Assessment/Plan Problem List: (1) Right upper quadrant pain ICD Codes: R10.11 - Right upper quadrant pain SNOMED: 118573766 (2) Dyspnea ICD Codes: R06.00 - Dyspnea, unspecified SNOMED: 772420281 Qualifiers: Qualified Codes: R06.02 - Shortness of breath (3) Anemia ICD Codes: D64.9 - Anemia, unspecified SNOMED: 159552097 (4) Abdominal pain ICD Codes: R10.9 - Unspecified abdominal pain SNOMED: 17741545 (5) HTN (hypertension) ICD Codes: I10 - Essential (primary) hypertension SNOMED: 34660626 (6) Diabetes ICD Codes: E11.9 - Type 2 diabetes mellitus without complications SNOMED: 39308589 Assessment/Plan: NPO IV fluid check electrolytes GI evaluation symptomatic treatment dvt prophylaxis Sarah Carey MD October 26, 2018 13:40
[2018-10-26 16:00] VITALS: BP 127/66
[2018-10-26] MEDS ORDERED: Nulytely 4L ORAL ONE (16:00)
[2018-10-26] MEDS ORDERED: Bisacodyl EC 5mg tab ORAL ONE (16:00)
--- NOTE | 2018-10-26 18:49 | Consultation ---
History of Present Illness General Date patient seen: October 26, 2018 Chief Complaint: Gastrointestinal Illness Referring physician: BARBARA MORRIS Reason for Consultation: Abdominal pain Present Illness HPI 73 y/o F with hx of HTN, Dm2, HLD, angioedema 2ry to JM, Obesity, anemia presented to ED on 10/25 with severe RUQ pain radiating to back and SOB due to pain. Pain began after drinking 2 beers 2 nights prior admission; rate 8/10 intensity Denied nausea, vomiting, diarrhea, fever/chills, dysuria upon admission. Allergies: Coded Allergies: JM INHIBITORS (Verified Allergy, Severe, Anaphylaxis, 05/31/17) COPIED FROM UNCODED SECTION Medication History Scheduled Amlodipine Besylate (Norvasc), 5 MG ORAL DAILY Amlodipine Besylate* (Amlodipine Besylate*), 10 MG ORAL DAILY, (Reported) Ascorbic Acid (Vitamin C), 1,000 MG PO BID, (Reported) Atorvastatin Calcium* (Atorvastatin Calcium*), 40 MG ORAL BEDTIME, (Reported) Atorvastatin Calcium* (Atorvastatin Calcium*), 40 MG ORAL BEDTIME, (Reported) Calcium Carbonate (Calcium), 600 MG PO BID, (Reported) Cetirizine Hcl (Cetirizine Hcl), 10 MG ORAL DAILY Cholecalciferol (Vitamin D3)* (Vitamin D*), 2,000 UNITS ORAL TWICE A DAY, ( Reported) Epinephrine (Epipen 2-Arvind), 0.3 MG IM PRN Ferrous Sulfate* (Ferrous Sulfate*), 325 MG ORAL THREE TIMES A DAY, (Reported) Glipizide* (Glipizide*), 5 MG ORAL BIDAC, (Reported) Meloxicam* (Meloxicam*), 15 MG PO DAILY, (Reported) Metformin Hcl* (Metformin Hcl*), 500 MG ORAL TWICE A DAY, (Reported) Metformin Hcl* (Metformin Hcl*), 1,000 MG ORAL BID, (Reported) Nicotine 14MG Patch* (Nicoderm Cq 14MG*), 1 EACH TD DAILY, (Reported) Ranitidine Hcl* (Zantac*), 150 MG ORAL BEDTIME Scheduled PRN Albuterol Sulfate (Ventolin Hfa), 2 PUFFS INH EVERY 6 HOURS PRN for Shortness of Breath, (Reported) Diphenhydramine Hcl (Banophen), 25 MG PO Q6HR PRN for Per rx protocol, (Reported ) Trazodone* (Trazodone*), 50 MG ORAL BEDTIME PRN for Insomnia, (Reported) Miscellaneous Medications Prednisone (Prednisone), 10 MG PO, (Reported) Prednisone (Prednisone), 5 MG PO, (Reported) [pt to bring list], (Reported) Patient History Healthcare decision maker Resuscitation status Advanced Directive on File Patient History Narrative Pmhx: as above Shx: The patient is single and lives alone. The patient admits to tobacco use one-third pack per day. The patient admits to alcohol use socially. 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 Last 24 Hour Vital Signs Date Time Temp Pulse Resp B/P (MAP) Pulse Ox O2 Delivery O2 Flow Rate FiO2 10/26/18 16:00 72 10/26/18 16:00 98.1 68 20 127/66 (86) 97 10/26/18 12:00 97.2 66 20 108/57 (74) 96 10/26/18 12:00 63 10/26/18 09:00 Room Air 10/26/18 08:00 73 10/26/18 08:00 97.9 71 21 121/55 (77) 100 71 71 10/26/18 04:00 74 10/26/18 04:00 99.0 71 18 128/65 (86) 98 71 71 10/26/18 00:00 98.4 65 18 98/62 (74) 94 10/26/18 00:00 65 10/25/18 21:00 Room Air 10/25/18 20:00 97.9 75 18 132/60 (84) 98 75 75 Intake and Output 10/25/18 10/26/18 19:00 07:00 Intake Total 2150 ml Balance 2150 ml Intake Oral 300 ml IV Total 1850 ml # Voids 5 2 Laboratory Tests Test 10/26/18 05:20 White Blood Count 7.3 K/UL (4.8-10.8) Red Blood Count 4.07 M/UL (4.20-5.40) L Hemoglobin 10.3 G/DL (12.0-16.0) L Hematocrit 32.1 % (37.0-47.0) L Mean Corpuscular Volume 79 FL (80-99) L Mean Corpuscular Hemoglobin 25.3 PG (27.0-31.0) L Mean Corpuscular Hemoglobin Concent 32.1 G/DL (32.0-36.0) Red Cell Distribution Width 15.0 % (11.6-14.8) H Platelet Count 386 K/UL (150-450) Mean Platelet Volume 5.5 FL (6.5-10.1) L Neutrophils (%) (Auto) 54.3 % (45.0-75.0) Lymphocytes (%) (Auto) 35.9 % (20.0-45.0) Monocytes (%) (Auto) 6.4 % (1.0-10.0) Eosinophils (%) (Auto) 2.4 % (0.0-3.0) Basophils (%) (Auto) 1.1 % (0.0-2.0) Activated Partial Thromboplast Time 31 SEC (23-33) Sodium Level 132 MMOL/L (136-145) L Potassium Level 3.9 MMOL/L (3.5-5.1) Chloride Level 99 MMOL/L (98-107) Carbon Dioxide Level 24 MMOL/L (21-32) Anion Gap 9 mmol/L (5-15) Blood Urea Nitrogen 9 mg/dL (7-18) Creatinine 1.1 MG/DL (0.55-1.30) Estimat Glomerular Filtration Rate mL/min (>60) Glucose Level 143 MG/DL (74-106) H Calcium Level 9.5 MG/DL (8.5-10.1) Total Bilirubin 0.2 MG/DL (0.2-1.0) Aspartate Amino Transf (AST/SGOT) 14 U/L (15-37) L Alanine Aminotransferase (ALT/SGPT) 17 U/L (12-78) Alkaline Phosphatase 83 U/L (46-116) Total Protein 7.7 G/DL (6.4-8.2) Albumin 3.1 G/DL (3.4-5.0) L Globulin 4.6 g/dL Albumin/Globulin Ratio 0.7 (1.0-2.7) L Amylase Level 46 U/L (25-115) Lipase 129 U/L (73-393) Height (Feet): 5 Height (Inches): 8.00 Weight (Pounds): 213 Medications Current Medications Medications (Trade) Dose Ordered Sig/Naomi Route PRN Reason Start Time Stop Time Status Last Admin Dose Admin Acetaminophen (Tylenol) 650 mg Q4H PRN ORAL T>100.5 10/25/18 09:00 11/24/18 08:59 Dextrose (Dextrose 50%) 25 ml Q30M PRN IV Hypoglycemia 10/25/18 09:00 11/24/18 08:59 Dextrose (Dextrose 50%) 50 ml Q30M PRN IV Hypoglycemia 10/25/18 09:00 11/24/18 08:59 Dextrose/Sodium Chloride 1,000 ml @ 75 mls/hr [id number] IV 10/25/18 10:30 11/24/18 10:29 10/26/18 12:44 Diphenhydramine HCl (Benadryl) 25 mg Q6H PRN ORAL Itching/Pruritis 10/25/18 09:00 11/24/18 08:59 Heparin Sodium (Porcine) (Heparin 5000 units/ml) 5,000 units EVERY 12 HOURS SUBQ 10/25/18 09:00 11/24/18 08:59 10/26/18 08:26 Morphine Sulfate (Morphine Sulfate) 2 mg Q4H PRN IVP Severe Pain (Pain Scale 7-10) 10/25/18 09:00 11/01/18 08:59 10/26/18 00:36 Nitroglycerin (Ntg) 0.4 mg Q5MIN X 3 DOSES PRN SL Prn Chest Pain 10/25/18 09:00 11/24/18 08:59 Ondansetron HCl (Zofran) 4 mg Q6H PRN IVP Nausea & Vomiting 10/25/18 09:00 11/24/18 08:59 Pantoprazole (Protonix) 40 mg DAILY IVP 10/25/18 16:00 11/24/18 15:59 10/26/18 08:26 Polyethylene Glycol (Miralax) 17 gm DAILYPRN PRN ORAL Constipation 10/25/18 09:00 11/24/18 08:59 Sodium Phosphate (Fleet's Sodium Phosl Enema) 133 ml ONCE ONCE RECTAL 10/26/18 23:00 10/26/18 23:01 Temazepam (Restoril) 15 mg HSPRN PRN ORAL Insomnia 10/25/18 21:00 11/01/18 20:59 Assessment/Plan Assessment/Plan: Abx: None Assessment: RLQ pain Non specific dilation CBD- etiology? , ?stone -Abd US: Mild distention of the common bile duct with a diameter up to 8.1 mm. This is nonspecific and may be related to patient's age. No cholelithiasis or gallbladder wall thickening. No intrahepatic biliary ductal dilatation. If there is continued clinical concern, the biliary tree can be further evaluated with MRI/MRCP. -KUB: Nonspecific bowel gas pattern with moderate retained stool. -CXR: Cardiomegaly. Mild edema Afebrile No leukocytosis HTN Dm2 HLD angioedema 2ry to JM Obesity anemia tobacco abuse Plan: -Continue to monitor off abx unless leukocytosis, febrile and/or HD decompensation -f/u cx -Monitor CBC/CMP, temperatures -GI f/u -aspiration precautions Thank you for this consultation. Will continue to follow along with you. Discussed with JULIA. Cris Schwab M.D. October 26, 2018 18:49
--- NOTE | 2018-10-26 19:18 | NUR ---
HAND-OFF: Report given to Sharyn DUMONT. Pt remains stable..
--- NOTE | 2018-10-26 19:49 | NUR ---
NURSE NOTES: Received pt from JULIA Angel. Pt awake, alert, and talkative. Family at bedside. Pt aware of procedure in the morning. Bed in lowest position. Call light within reach. Will continue to monitor.
[2018-10-26 20:00] VITALS: BP 128/53
--- NOTE | 2018-10-26 21:44 | NUR ---
NURSE NOTES: Called and left a message with MABLE Terrell to regarding retiming the pts Enema for 0200, he approved. Will make changes to the current order and will continue to monitor.
--- NOTE | 2018-10-26 22:02 | NUR ---
NURSE NOTES: Called and left a message with Dr. Newman regarding pts low sodium. Awaiting call back.
--- NOTE | 2018-10-26 22:10 | NUR ---
NURSE NOTES: Dr. Newman called back with orders to change IV fluid to D5NS at 75 cc.hr. Will input order and will continue to monitor.
[2018-10-26] MEDS: D5NS 1,000 ML IV SCH (22:20)
[2018-10-26] MEDS ORDERED: Fleet's Enema 133ml RECTAL ONE (23:00)
[2018-10-27] VITALS (11 sets, daily range): BP systolic 92–134; BP diastolic 45–94
[2018-10-27] MEDS ORDERED: Fleet's Enema 133ml RECTAL SCH (02:00)
--- NOTE | 2018-10-27 07:18 | NUR ---
HAND-OFF: Report given to JULIA Angel. Pt stable.
--- NOTE | 2018-10-27 07:18 | NUR ---
NURSE NOTES: Received report from Sharyn DUMONT. aox4, No c/o pain. On NPO for endoscopy and colonoscopy scheduled today. Bed in lowest position and locked. IV site in LAC 20g running with D5 NS @75ml/hr intact patent. Pt in bed asleep but arousable to verbal stimuli. On room air . Will continue to plan of care.
[2018-10-27 07:20] LABS: ANION GAP 10 mmol/L (5-15); BLOOD UREA NITROGEN 12 mg/dL (7-18); CALCIUM 9.6 MG/DL (8.5-10.1); CARBON DIOXIDE 23 MMOL/L (21-32); CHLORIDE 104 MMOL/L (98-107); POTASSIUM 3.8 MMOL/L (3.5-5.1); SODIUM 137 MMOL/L (136-145)
[2018-10-27 07:21] LABS: HEMOGLOBIN 9.9 G/DL (12.0-16.0); LYMPHOCYTES % (AUTO) 40.7 % (20.0-45.0); MEAN CORPUSCULAR VOLUME 79 FL (80-99); MONOCYTES % (AUTO) 9.4 % (1.0-10.0); NEUTROPHILS % (AUTO) 45.9 % (45.0-75.0); PLATELET COUNT 383 K/UL (150-450); RED BLOOD COUNT 3.92 M/UL (4.20-5.40); RED CELL DISTRIBUTION WIDTH 14.6 % (11.6-14.8); WHITE BLOOD COUNT 6.4 K/UL (4.8-10.8)
[2018-10-27] MEDS: Heparin 5000 units/ml inj SUBQ SCH (07:44)
[2018-10-27] MEDS: Pantoprazole Inj IVP SCH (08:18)
--- NOTE | 2018-10-27 10:49 | Infectious Diseases Prog Note ---
Assessment/Plan Assessment/Plan Abx: None Assessment: RLQ pain Non specific dilation CBD- etiology? , ?stone -Abd US: Mild distention of the common bile duct with a diameter up to 8.1 mm. This is nonspecific and may be related to patient's age. No cholelithiasis or gallbladder wall thickening. No intrahepatic biliary ductal dilatation. If there is continued clinical concern, the biliary tree can be further evaluated with MRI/MRCP. -KUB: Nonspecific bowel gas pattern with moderate retained stool. -CXR: Cardiomegaly. 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 Will continue to follow along with you. Discussed with RN. Subjective Allergies: Coded Allergies: JM INHIBITORS (Verified Allergy, Severe, Anaphylaxis, 05/31/17) COPIED FROM UNCODED SECTION Subjective afebrile off abx for EGD and colo today Objective Vital Signs Last 24 Hour Vital Signs Date Time Temp Pulse Resp B/P (MAP) Pulse Ox O2 Delivery O2 Flow Rate FiO2 10/27/18 08:56 Room Air 10/27/18 08:00 62 10/27/18 08:00 98.5 71 18 133/55 (81) 93 10/27/18 04:00 97.9 69 20 121/94 (103) 94 10/27/18 04:00 70 10/27/18 00:00 97.6 69 20 127/56 (79) 98 10/27/18 00:00 67 10/26/18 21:00 Room Air 10/26/18 20:00 69 10/26/18 20:00 98.0 71 20 128/53 (78) 93 10/26/18 16:00 72 10/26/18 16:00 98.1 68 20 127/66 (86) 97 10/26/18 12:00 97.2 66 20 108/57 (74) 96 10/26/18 12:00 63 Height (Feet): 5 Height (Inches): 6.00 Weight (Pounds): 212 Objective General Appearance: WD/WN, no apparent distress, mild distress Lines, tubes and drains: peripheral HEENT: normocephalic, atraumatic Neck: non-tender, normal alignment Respiratory/Chest: chest wall non-tender, lungs clear Cardiovascular/Chest: normal peripheral pulses Abdomen: normal bowel sounds, non tender Extremities: normal range of motion Skin Exam: normal pigmentation Laboratory Tests Test 10/27/18 06:42 White Blood Count 6.4 K/UL (4.8-10.8) Red Blood Count 3.92 M/UL (4.20-5.40) L Hemoglobin 9.9 G/DL (12.0-16.0) L Hematocrit 31.0 % (37.0-47.0) L Mean Corpuscular Volume 79 FL (80-99) L Mean Corpuscular Hemoglobin 25.2 PG (27.0-31.0) L Mean Corpuscular Hemoglobin Concent 31.9 G/DL (32.0-36.0) L Red Cell Distribution Width 14.6 % (11.6-14.8) Platelet Count 383 K/UL (150-450) Mean Platelet Volume 5.6 FL (6.5-10.1) L Neutrophils (%) (Auto) 45.9 % (45.0-75.0) Lymphocytes (%) (Auto) 40.7 % (20.0-45.0) Monocytes (%) (Auto) 9.4 % (1.0-10.0) Eosinophils (%) (Auto) 3.0 % (0.0-3.0) Basophils (%) (Auto) 1.0 % (0.0-2.0) Prothrombin Time 10.7 SEC (9.30-11.50) Prothromb Time International Ratio 1.0 (0.9-1.1) Activated Partial Thromboplast Time 29 SEC (23-33) Sodium Level 137 MMOL/L (136-145) Potassium Level 3.8 MMOL/L (3.5-5.1) Chloride Level 104 MMOL/L (98-107) Carbon Dioxide Level 23 MMOL/L (21-32) Anion Gap 10 mmol/L (5-15) Blood Urea Nitrogen 12 mg/dL (7-18) Creatinine 1.0 MG/DL (0.55-1.30) Estimat Glomerular Filtration Rate mL/min (>60) Glucose Level 128 MG/DL (74-106) H Calcium Level 9.6 MG/DL (8.5-10.1) Current Medications Medications (Trade) Dose Ordered Sig/Naomi Route PRN Reason Start Time Stop Time Status Last Admin Dose Admin Acetaminophen (Tylenol) 650 mg Q4H PRN ORAL T>100.5 10/25/18 09:00 11/24/18 08:59 Dextrose (Dextrose 50%) 25 ml Q30M PRN IV Hypoglycemia 10/25/18 09:00 11/24/18 08:59 Dextrose (Dextrose 50%) 50 ml Q30M PRN IV Hypoglycemia 10/25/18 09:00 11/24/18 08:59 Dextrose/Sodium Chloride 1,000 ml @ 75 mls/hr [id number] IV 10/26/18 22:15 11/25/18 22:14 10/26/18 22:20 Diphenhydramine HCl (Benadryl) 25 mg Q6H PRN ORAL Itching/Pruritis 10/25/18 09:00 11/24/18 08:59 Heparin Sodium (Porcine) (Heparin 5000 units/ml) 5,000 units EVERY 12 HOURS SUBQ 10/25/18 09:00 11/24/18 08:59 10/26/18 08:26 Morphine Sulfate (Morphine Sulfate) 2 mg Q4H PRN IVP Severe Pain (Pain Scale 7-10) 10/25/18 09:00 11/01/18 08:59 10/26/18 00:36 Nitroglycerin (Ntg) 0.4 mg Q5MIN X 3 DOSES PRN SL Prn Chest Pain 10/25/18 09:00 11/24/18 08:59 Ondansetron HCl (Zofran) 4 mg Q6H PRN IVP Nausea & Vomiting 10/25/18 09:00 11/24/18 08:59 Pantoprazole (Protonix) 40 mg DAILY IVP 10/25/18 16:00 11/24/18 15:59 10/27/18 08:18 Polyethylene Glycol (Miralax) 17 gm DAILYPRN PRN ORAL Constipation 10/25/18 09:00 11/24/18 08:59 Temazepam (Restoril) 15 mg HSPRN PRN ORAL Insomnia 10/25/18 21:00 11/01/18 20:59 Cris Schwab M.D. October 27, 2018 10:49
[2018-10-27] MEDS ORDERED: fentaNYL 100 mcg/2 mL IV ONE (11:12)
[2018-10-27] MEDS ORDERED: Midazolam 2mg/2ml Inj ONE (11:12)
--- NOTE | 2018-10-27 11:28 | NUR ---
NURSE NOTES: Pt picked up by a transport from GI lab via [facility] for endo/colonoscopy scheduled today.
[2018-10-27] MEDS: D5NS 1,000 ML IV SCH (11:35)
--- NOTE | 2018-10-27 11:37 | Pre-Procedure Note/Attestation ---
Pre-Procedure Note/Attestation Complete Prior to Procedure Planned Procedure: not applicable Procedure Narrative: esophagogastroduodenoscopy and colonoscopy Indications for Procedure Pre-Operative Diagnosis: abd pain Attestation I attest that I discussed the nature of the procedure; its benefits; risks and complications; and alternatives (and the risks and benefits of such alternatives ), prior to the procedure, with the patient (or the patient's legal community engagement representative). I attest that, if there was a reasonable possibility of needing a blood transfusion, the patient (or the patient's legal community engagement representative) was given the [facility] standardized written summary, pursuant to the [place] Blood Safety Act ([place] Health and Safety Code # 1645, as amended). I attest that I re-evaluated the patient just prior to the surgery and that there has been no change in the patient's H&P, except as documented below: Kane Hargrove MD October 27, 2018 11:37
--- NOTE | 2018-10-27 11:39 | General Progress Note ---
Assessment/Plan Problem List: (1) HTN (hypertension) ICD Codes: I10 - Essential (primary) hypertension SNOMED: 76015600 (2) Diabetes ICD Codes: E11.9 - Type 2 diabetes mellitus without complications SNOMED: 24345372 (3) Abdominal pain ICD Codes: R10.9 - Unspecified abdominal pain SNOMED: 69282001 (4) Anemia ICD Codes: D64.9 - Anemia, unspecified SNOMED: 070487570 Assessment/Plan: plan for EGD and colonoscopy for today Subjective ROS Limited/Unobtainable: Yes Allergies: Coded Allergies: JM INHIBITORS (Verified Allergy, Severe, Anaphylaxis, 05/31/17) COPIED FROM UNCODED SECTION Objective Last 24 Hour Vital Signs Date Time Temp Pulse Resp B/P (MAP) Pulse Ox O2 Delivery O2 Flow Rate FiO2 10/27/18 08:56 Room Air 10/27/18 08:00 62 10/27/18 08:00 98.5 71 18 133/55 (81) 93 10/27/18 04:00 97.9 69 20 121/94 (103) 94 10/27/18 04:00 70 10/27/18 00:00 97.6 69 20 127/56 (79) 98 10/27/18 00:00 67 10/26/18 21:00 Room Air 10/26/18 20:00 69 10/26/18 20:00 98.0 71 20 128/53 (78) 93 10/26/18 16:00 72 10/26/18 16:00 98.1 68 20 127/66 (86) 97 10/26/18 12:00 97.2 66 20 108/57 (74) 96 10/26/18 12:00 63 Intake and Output 10/26/18 10/27/18 19:00 07:00 Intake Total 3160 ml Output Total 500 ml Balance 2660 ml Intake Oral 2160 ml IV Total 1000 ml Output Urine Total 500 ml # Voids 3 2 # Bowel Movements 1 8 Laboratory Tests 10/27/18 06:42: White Blood Count 6.4, Red Blood Count 3.92L, Hemoglobin 9.9L, Hematocrit 31.0L , Mean Corpuscular Volume 79L, Mean Corpuscular Hemoglobin 25.2L, Mean Corpuscular Hemoglobin Concent 31.9L, Red Cell Distribution Width 14.6, Platelet Count 383, Mean Platelet Volume 5.6L, Neutrophils (%) (Auto) 45.9, Lymphocytes (%) (Auto) 40.7, Monocytes (%) (Auto) 9.4, Eosinophils (%) (Auto) 3.0, Basophils (%) (Auto) 1.0, Prothrombin Time 10.7, Prothromb Time International Ratio 1.0, Activated Partial Thromboplast Time 29, Sodium Level 137, Potassium Level 3.8, Chloride Level 104, Carbon Dioxide Level 23, Anion Gap 10, Blood Urea Nitrogen 12, Creatinine 1.0, Estimat Glomerular Filtration Rate , Glucose Level 128H, Calcium Level 9.6 Height (Feet): 5 Height (Inches): 6.00 Weight (Pounds): 212 General Appearance: alert EENT: normal ENT inspection Neck: normal alignment, supple Cardiovascular: normal rate Respiratory/Chest: decreased breath sounds Abdomen: normal bowel sounds, non tender, soft Extremities: non-tender Kane Hargrove MD October 27, 2018 11:39
[2018-10-27] MEDS ORDERED: Lidocaine 1% MPF 10mg/ml 5ml ONE (11:40)
[2018-10-27] MEDS ORDERED: Propofol 200mg/20ml IV ONE (11:40)
[2018-10-27] MEDS ORDERED: LR 1000ml ONE (11:40)
[2018-10-27] MEDS ORDERED: NS 500ML IVPB ONE (11:45)
[2018-10-27] MEDS ORDERED: LR 1000ml 1,000 ML IVLG SCH (12:01)
--- NOTE | 2018-10-27 12:01 | Anethesia Preoperative Eval ---
Anesthesia Pre-op PMH/ROS General Date of Evaluation: October 27, 2018 Anesthesiologist: Archie ASA Score: ASA 2 Mallampati Score Class I : Soft palate, uvula, fauces, pillars visible Class II: Soft palate, uvula, fauces visible Class III: Soft palate, base of uvula visible Class IV: Only hard plate visible Mallampati Classification: Class II Surgeon: Beena Diagnosis: Anemia Surgical Procedure: EGd and colonoscopy Anesthesia History: none Family History: no anesthesia problems Allergies: Coded Allergies: JM INHIBITORS (Verified Allergy, Severe, Anaphylaxis, 05/31/17) COPIED FROM UNCODED SECTION Medications: see eMAR Patient NPO?: Yes NPO Date: October 26, 2018 NPO Time: 22:00 Past Medical History Cardiovascular: Reports: HTN, other - HLD; Denies: CAD, PR, valve dz, arrhythmia Pulmonary: Reports: asthma, COPD; Denies: FLORA, other Gastrointestinal/Genitourinary: Denies: GERD, CRI, ESRD, other Neurologic/Psychiatric: Denies: dementia, CVA, depression/anxiety, TIA, other Endocrine: Reports: DM; Denies: hypothyroidism, steroids, other HEENT: Denies: cataract (L), cataract (R), glaucoma, [place] (L), [place] (R), other Hematology/Immune: Reports: anemia - acute on chronic; Denies: DVT, bleeding disorder, other Musculoskeletal/Integumentary: Reports: OA; Denies: RA, DJD, DDD, edema, other Other: obesity PSxH Narrative: MORGAN, bilateral THRs Anesthesia Pre-op Phys. Exam Physician Exam Last Vital Signs Date Time Temp Pulse Resp B/P (MAP) Pulse Ox O2 Delivery O2 Flow Rate FiO2 10/27/18 08:56 Room Air 10/27/18 08:00 62 10/27/18 08:00 98.5 18 133/55 (81) 93 Constitutional: NAD Cardiovascular: RRR Respiratory: CTA Airway Exam Mallampati Score: Class III MO: limited ROM: limited Teeth: intact, broken Anesthesia Pre-op A/P Labs Hematology Test 10/27/18 06:42 White Blood Count 6.4 K/UL (4.8-10.8) Red Blood Count 3.92 M/UL (4.20-5.40) L Hemoglobin 9.9 G/DL (12.0-16.0) L Hematocrit 31.0 % (37.0-47.0) L Mean Corpuscular Volume 79 FL (80-99) L Mean Corpuscular Hemoglobin 25.2 PG (27.0-31.0) L Mean Corpuscular Hemoglobin Concent 31.9 G/DL (32.0-36.0) L Red Cell Distribution Width 14.6 % (11.6-14.8) Platelet Count 383 K/UL (150-450) Mean Platelet Volume 5.6 FL (6.5-10.1) L Neutrophils (%) (Auto) 45.9 % (45.0-75.0) Lymphocytes (%) (Auto) 40.7 % (20.0-45.0) Monocytes (%) (Auto) 9.4 % (1.0-10.0) Eosinophils (%) (Auto) 3.0 % (0.0-3.0) Basophils (%) (Auto) 1.0 % (0.0-2.0) Coagulation Test 10/27/18 06:42 Prothrombin Time 10.7 SEC (9.30-11.50) Prothromb Time International Ratio 1.0 (0.9-1.1) Activated Partial Thromboplast Time 29 SEC (23-33) Chemistry Test 10/27/18 06:42 Sodium Level 137 MMOL/L (136-145) Potassium Level 3.8 MMOL/L (3.5-5.1) Chloride Level 104 MMOL/L (98-107) Carbon Dioxide Level 23 MMOL/L (21-32) Anion Gap 10 mmol/L (5-15) Blood Urea Nitrogen 12 mg/dL (7-18) Creatinine 1.0 MG/DL (0.55-1.30) Estimat Glomerular Filtration Rate mL/min (>60) Glucose Level 128 MG/DL (74-106) H Calcium Level 9.6 MG/DL (8.5-10.1) Studies Pre-op Studies: EKG - sr Risk Assessment & Plan Assessment: ASA II Plan: MAC Status Change Before Surgery: No Pre-Antibiotics Drug: N/A Radha Perez MD October 27, 2018 12:01
--- NOTE | 2018-10-27 12:04 | Pulmonology Progress Note ---
Assessment/Plan Problems: (1) Dyspnea (2) Right upper quadrant pain (3) Anemia (4) Abdominal pain (5) HTN (hypertension) (6) Diabetes Assessment/Plan symptomatic treatment for colonoscopy today anemia w/u in progess sliding scale diabetic diet dvt prophylaxis Subjective ROS Limited/Unobtainable: No Constitutional: Reports: no symptoms HEENT: Repors: no symptoms Respiratory: Reports: no symptoms Allergies: Coded Allergies: JM INHIBITORS (Verified Allergy, Severe, Anaphylaxis, 05/31/17) COPIED FROM UNCODED SECTION Objective Last 24 Hour Vital Signs Date Time Temp Pulse Resp B/P (MAP) Pulse Ox O2 Delivery O2 Flow Rate FiO2 10/27/18 08:56 Room Air 10/27/18 08:00 62 10/27/18 08:00 98.5 71 18 133/55 (81) 93 10/27/18 04:00 97.9 69 20 121/94 (103) 94 10/27/18 04:00 70 10/27/18 00:00 97.6 69 20 127/56 (79) 98 10/27/18 00:00 67 10/26/18 21:00 Room Air 10/26/18 20:00 69 10/26/18 20:00 98.0 71 20 128/53 (78) 93 10/26/18 16:00 72 10/26/18 16:00 98.1 68 20 127/66 (86) 97 Intake and Output 10/26/18 10/27/18 19:00 07:00 Intake Total 3160 ml Output Total 500 ml Balance 2660 ml Intake Oral 2160 ml IV Total 1000 ml Output Urine Total 500 ml # Voids 3 2 # Bowel Movements 1 8 General Appearance: WD/WN HEENT: normocephalic, atraumatic Respiratory/Chest: chest wall non-tender, lungs clear Breasts: no masses Cardiovascular: normal peripheral pulses, normal rate Abdomen: normal bowel sounds, soft, non tender Genitourinary: normal external genitalia Extremities: no cyanosis Skin: no rash 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 Lymphatic: no neck adenopathy Laboratory Tests 10/27/18 06:42: White Blood Count 6.4, Red Blood Count 3.92L, Hemoglobin 9.9L, Hematocrit 31.0L , Mean Corpuscular Volume 79L, Mean Corpuscular Hemoglobin 25.2L, Mean Corpuscular Hemoglobin Concent 31.9L, Red Cell Distribution Width 14.6, Platelet Count 383, Mean Platelet Volume 5.6L, Neutrophils (%) (Auto) 45.9, Lymphocytes (%) (Auto) 40.7, Monocytes (%) (Auto) 9.4, Eosinophils (%) (Auto) 3.0, Basophils (%) (Auto) 1.0, Prothrombin Time 10.7, Prothromb Time International Ratio 1.0, Activated Partial Thromboplast Time 29, Sodium Level 137, Potassium Level 3.8, Chloride Level 104, Carbon Dioxide Level 23, Anion Gap 10, Blood Urea Nitrogen 12, Creatinine 1.0, Estimat Glomerular Filtration Rate , Glucose Level 128H, Calcium Level 9.6 Current Medications Medications (Trade) Dose Ordered Sig/Naomi Route PRN Reason Start Time Stop Time Status Last Admin Dose Admin Acetaminophen (Tylenol) 650 mg Q4H PRN ORAL T>100.5 10/25/18 09:00 11/24/18 08:59 Dextrose (Dextrose 50%) 25 ml Q30M PRN IV Hypoglycemia 10/25/18 09:00 11/24/18 08:59 Dextrose (Dextrose 50%) 50 ml Q30M PRN IV Hypoglycemia 10/25/18 09:00 11/24/18 08:59 Dextrose/Sodium Chloride 1,000 ml @ 75 mls/hr [id number] IV 10/26/18 22:15 11/25/18 22:14 10/26/18 22:20 Diphenhydramine HCl (Benadryl) 25 mg Q6H PRN ORAL Itching/Pruritis 10/25/18 09:00 11/24/18 08:59 Heparin Sodium (Porcine) (Heparin 5000 units/ml) 5,000 units EVERY 12 HOURS SUBQ 10/25/18 09:00 11/24/18 08:59 10/26/18 08:26 Morphine Sulfate (Morphine Sulfate) 2 mg Q4H PRN IVP Severe Pain (Pain Scale 7-10) 10/25/18 09:00 11/01/18 08:59 10/26/18 00:36 Nitroglycerin (Ntg) 0.4 mg Q5MIN X 3 DOSES PRN SL Prn Chest Pain 10/25/18 09:00 11/24/18 08:59 Ondansetron HCl (Zofran) 4 mg Q6H PRN IVP Nausea & Vomiting 10/25/18 09:00 11/24/18 08:59 Pantoprazole (Protonix) 40 mg DAILY IVP 10/25/18 16:00 11/24/18 15:59 10/27/18 08:18 Polyethylene Glycol (Miralax) 17 gm DAILYPRN PRN ORAL Constipation 10/25/18 09:00 11/24/18 08:59 Temazepam (Restoril) 15 mg HSPRN PRN ORAL Insomnia 10/25/18 21:00 11/01/18 20:59 Sarah Carey MD October 27, 2018 12:04
[2018-10-27] MEDS ORDERED: DiphenhydrAMINE 50mg/ml Inj IVP PRN (12:15)
--- NOTE | 2018-10-27 12:15 | Endoscopy Procedure Note ---
Endoscopy Procedure Note General Indication for Procedure: anemia Procedures Performed: EGD, colonoscopy Operative Findings/Diagnosis: gastritis, diverticulosis Specimen: yes Pt Tolerated Procedure Well: Yes Estimated Blood Loss: none Anesthesia Anesthesiologist: destiny Anesthesia: MAC Inserted Devices Implant(s) used?: No Quality Quality of Bowel Preparation: Poor Did scope reach the cecum?: Yes Was there any complications?: No GI Core Measures 50 yrs or older w/o bx or poly: Not Applicable 10yrs. F/U recommended: Not Applicable Kane Hargrove MD October 27, 2018 12:15
--- NOTE | 2018-10-27 12:22 | 48 Hour Post Anesthesia Eval ---
Post Anesthesia Evaluation Procedure: EGd and colonoscopy Date of Evaluation: October 27, 2018 Airway: patent Nausea: No Vomiting: No Pain Intensity: 0 Hydration Status: adequate Cardiopulmonary Status: at baseline Mental Status/LOC: patient returned to baseline Post-Anesthesia Complications: 0 Follow-up care needed: ready to discharge Radha Perez MD October 27, 2018 12:22
--- NOTE | 2018-10-27 12:22 | Immediate Post-Op Evaluation ---
Immediate Post-Op Evalulation Immediate Post-Op Evalulation Procedure: EGd and colonoscopy Date of Evaluation: October 27, 2018 Time of Evaluation: 12:24 IV Fluids: 200 Blood Products: 0 Estimated Blood Loss: 0 Urinary Output: 0 Blood Pressure Systolic: 125 Blood Pressure Diastolic: 45 Pulse Rate: 71 Respiratory Rate: 16 O2 Sat by Pulse Oximetry: 98 Temperature (Fahrenheit): 97.8 Pain Score (1-10): 0 Nausea: No Vomiting: No Complications 0 Patient Status: awake, reacts, patent, none Hydration Status: adequate Drug: N/A Radha Perez MD October 27, 2018 12:21
--- NOTE | 2018-10-27 13:00 | NUR ---
NURSE NOTES: Pt returns back from GI lab. vital signs in stable. No c/o pain. Will resume the the [facility] diet as ordered. EGD showing -Gastriris, Colonoscopy: Diverticulosis and no active bleed, no polyp and no Bx done.
--- NOTE | 2018-10-27 17:07 | Internal Med Progress Note ---
Subjective Date of Service: October 27, 2018 Physician Name Cesar Christian Attending Physician Mehran Newman MD Current Medications Medications (Trade) Dose Ordered Sig/Naomi Route PRN Reason Start Time Stop Time Status Last Admin Dose Admin Acetaminophen (Tylenol) 650 mg Q4H PRN ORAL T>100.5 10/25/18 09:00 11/24/18 08:59 Dextrose (Dextrose 50%) 25 ml Q30M PRN IV Hypoglycemia 10/25/18 09:00 11/24/18 08:59 Dextrose (Dextrose 50%) 50 ml Q30M PRN IV Hypoglycemia 10/25/18 09:00 11/24/18 08:59 Dextrose/Sodium Chloride 1,000 ml @ 75 mls/hr [id number] IV 10/26/18 22:15 11/25/18 22:14 10/26/18 22:20 Diphenhydramine HCl (Benadryl) 25 mg Q6H PRN ORAL Itching/Pruritis 10/25/18 09:00 11/24/18 08:59 Heparin Sodium (Porcine) (Heparin 5000 units/ml) 5,000 units EVERY 12 HOURS SUBQ 10/25/18 09:00 11/24/18 08:59 10/26/18 08:26 Morphine Sulfate (Morphine Sulfate) 2 mg Q4H PRN IVP Severe Pain (Pain Scale 7-10) 10/25/18 09:00 11/01/18 08:59 10/26/18 00:36 Nitroglycerin (Ntg) 0.4 mg Q5MIN X 3 DOSES PRN SL Prn Chest Pain 10/25/18 09:00 11/24/18 08:59 Ondansetron HCl (Zofran) 4 mg Q6H PRN IVP Nausea & Vomiting 10/25/18 09:00 11/24/18 08:59 Pantoprazole (Protonix) 40 mg DAILY IVP 10/25/18 16:00 11/24/18 15:59 10/27/18 08:18 Polyethylene Glycol (Miralax) 17 gm DAILYPRN PRN ORAL Constipation 10/25/18 09:00 11/24/18 08:59 Temazepam (Restoril) 15 mg HSPRN PRN ORAL Insomnia 10/25/18 21:00 11/01/18 20:59 Allergies: Coded Allergies: JM INHIBITORS (Verified Allergy, Severe, Anaphylaxis, 05/31/17) COPIED FROM UNCODED SECTION ROS Limited/Unobtainable: No Constitutional: Reports: no symptoms HEENT: Reports: no symptoms Cardiovascular: Reports: no symptoms Respiratory: Reports: no symptoms Gastrointestinal/Abdominal: Reports: abdominal pain Genitourinary: Reports: no symptoms Neurologic/Psychiatric: Reports: no symptoms Subjective 73 YO F admitted with abdominal pain and shortness of breath. Cover for Int med -Dr Newman. Objective Last Vital Signs Date Time Temp Pulse Resp B/P (MAP) Pulse Ox O2 Delivery O2 Flow Rate FiO2 10/27/18 16:00 97.9 69 18 115/56 (75) 97 10/27/18 12:54 Nasal Cannula 3 Laboratory Tests Test 10/27/18 06:42 White Blood Count 6.4 K/UL (4.8-10.8) Red Blood Count 3.92 M/UL (4.20-5.40) L Hemoglobin 9.9 G/DL (12.0-16.0) L Hematocrit 31.0 % (37.0-47.0) L Mean Corpuscular Volume 79 FL (80-99) L Mean Corpuscular Hemoglobin 25.2 PG (27.0-31.0) L Mean Corpuscular Hemoglobin Concent 31.9 G/DL (32.0-36.0) L Red Cell Distribution Width 14.6 % (11.6-14.8) Platelet Count 383 K/UL (150-450) Mean Platelet Volume 5.6 FL (6.5-10.1) L Neutrophils (%) (Auto) 45.9 % (45.0-75.0) Lymphocytes (%) (Auto) 40.7 % (20.0-45.0) Monocytes (%) (Auto) 9.4 % (1.0-10.0) Eosinophils (%) (Auto) 3.0 % (0.0-3.0) Basophils (%) (Auto) 1.0 % (0.0-2.0) Prothrombin Time 10.7 SEC (9.30-11.50) Prothromb Time International Ratio 1.0 (0.9-1.1) Activated Partial Thromboplast Time 29 SEC (23-33) Sodium Level 137 MMOL/L (136-145) Potassium Level 3.8 MMOL/L (3.5-5.1) Chloride Level 104 MMOL/L (98-107) Carbon Dioxide Level 23 MMOL/L (21-32) Anion Gap 10 mmol/L (5-15) Blood Urea Nitrogen 12 mg/dL (7-18) Creatinine 1.0 MG/DL (0.55-1.30) Estimat Glomerular Filtration Rate mL/min (>60) Glucose Level 128 MG/DL (74-106) H Calcium Level 9.6 MG/DL (8.5-10.1) Intake and Output 10/26/18 10/27/18 19:00 07:00 Intake Total 3160 ml Output Total 500 ml Balance 2660 ml Intake Oral 2160 ml IV Total 1000 ml Output Urine Total 500 ml # Voids 3 2 # Bowel Movements 1 8 Objective PHYSICAL EXAMINATION: GENERAL: The patient is well-developed, well-nourished female, in no apparent distress. HEENT: Eyes, pupils equal and responsive to light and accommodation. Extraocular movements are intact. NECK: Supple without lymphadenopathy. CHEST: Lungs are clear to auscultation bilaterally without wheezes or rales. CARDIOVASCULAR: Regular rhythm and rate. S1 and S2 are normal without murmurs, rubs, or gallops. ABDOMEN: Soft, nontender, and nondistended. Positive bowel sounds. No evidence of hepatosplenomegaly. Currently, no rebound or guarding noted. EXTREMITIES: Negative for clubbing, cyanosis, or edema. RECTAL: Refused. GENITAL: Refused. NEUROLOGIC: Cranial nerves II through XII are grossly intact without focal deficits. Motor strength is 5/5 bilaterally. Deep tendon reflexes are 2+ plantar. Assessment/Plan Assessment/Plan ASSESSMENT: This is a 73-year-old female. 1. Abdominal pain. 2. Shortness of breath. 3. Diabetes type 2. 4. Hypertension. 5. Hypercholesterolemia. 6. 10/27/18 endoscopy=gastritis 7. 10/27/18 colonoscopy=diverticulitis TREATMENT: 1. Abdominal pain - a Gastroenterology consultation has been obtained with Dr. Kane Hargrove. We will follow recommendations of Gastroenterology. Ultrasound of abdomen=neg cholelithiasis/cholecystitis. 2. Shortness of breath. This may be secondary to abdominal distention as above. 3. Diabetes type 2. Continue metformin and glipizide as above. A regular insulin sliding scale has been instituted. 4. Hypertension. Continue amlodipine as above. 5. Hypercholesterolemia. Continue atorvastatin as above. 6. S/P Endoscopy/colonoscopy e 10/27/18 Cesar Christian MD October 27, 2018 17:07
--- NOTE | 2018-10-27 17:45 | Procedure Note ---
DATE OF PROCEDURE: 10/27/2018 SURGEON: Kane Hargrove M.D. PROCEDURE: Upper endoscopy with biopsy and colonoscopy. ANESTHESIA: Per Dr. Almanza. INSTRUMENT: Olympus adult flexible upper endoscope and colonoscope. INDICATION: Anemia. REASON FOR PROCEDURE: The procedure, risks, benefits, and possible consequences, including hemorrhage, aspiration, perforation and infection, and alternative treatments, were explained to the patient/legal guardian by Dr. Kane Hargrove and the patient/legal guardian understood and accepted these risks. PROCEDURE IN DETAIL: After informed consent was obtained and the patient was adequately sedated, an Olympus upper endoscope was advanced from the mouth into the second portion of duodenum and retroflexion was performed in the stomach. The patient had evidence of diffuse gastritis. Random biopsy from antrum was obtained to rule out for H. pylori infection. Otherwise rest of upper endoscope examination grossly looked within normal limits. At this time, the upper endoscope was retrieved and the patient was turned over for colonoscopy. First, rectal exam was performed, which showed positive for internal hemorrhoids. Then, the scope was advanced from the rectum into area seems to be the cecum, quality of prep was very poor so we could not see the appendiceal orifice nor the ileocecal valve. It was a limited examination given poor prep. The patient had significant diverticulosis throughout the colon. No evidence of any active bleeding at this time. No obvious large polyp was seen but finding of a small polyps with this prep was impossible. Retroflexion of rectum showed evidence of internal hemorrhoids. SUMMARY OF FINDINGS: 1. Gastritis, status post biopsy. 2. Poor colonic prep. 3. Diverticulosis. 4. Internal hemorrhoids. RECOMMENDATIONS: 1. Follow path. 2. We will recommend repeat stool for OB. 3. We recommend the patient have a colonoscopy no later than one year given this poor prep. I want to thank, Dr. Mehran Newman and Dr. Morales, for this kind referral. Kane Hargrove M.D. DR: Landy JOB#: [id number] CC: Mehran Newman M.D.; Fax#: [phone] ANNETTE MORALES M.D. ; FAX#: [phone]
--- NOTE | 2018-10-27 18:25 | NUR ---
Discharge: Patient is being discharged from medical care. Awake, alert and oriented x4. After care instructions, patient verbalized understanding of After care instructions. Patient signed patient consent in the medical record for patient destination upon discharge. All medical devices such as IV, ekg monitor tech and ID band were removed. Patient ambulated out with son and all personal belongings with steady gait.
--- NOTE | 2018-10-28 13:43 | Discharge Summary ---
Discharge Summary Discharge Summary _ DATE OF ADMISSION: 10/25/2018 DATE OF DISCHARGE: 10/27/2018 DISCHARGED BY: Dr. Newman REASON FOR ADMISSION: [] 73 years old female with past medical history of hypertension, diabetes mellitus, presented to emergency department with severe right upper quadrant abdominal pain radiating to her back. Pain started after drinking 2 beers a few nights ago 2 nights ago. Patient denied nausea and vomiting. Pain was caused her to feel short of breath. Upon initial evaluation vital signs were stable. Laboratory work-up revealed no leukocytosis hemoglobin 10.6 hematocrit 32.4. Stable electrolytes and renal parameters. Lactic acid 1.8. Glucose 138. Albumin 3.2. Troponin negative. proBNP 34. EKG revealed normal sinus rhythm no acute ischemic changes. Chest x-ray demonstrated cardiomegaly and mild edema. Abdominal x-ray revealed nonspecific bowel gas pattern with moderate retained stool. Abdominal ultrasound demonstrated mild distention of the common bile duct with diameter up to 8.1mm possibly related to patient age. No cholelithiasis. No gallbladder wall thickening. No intrahepatic biliary ductal dilatation. LFTs and bilirubin stable. Patient subsequently was admitted to telemetry floor EKG revealed sinus rhythm with first-degree AV block repeated EKG no changes. Patient was found to be transiently hypotensive but not tachycardic. Fluid bolus provided. After fluid bolus patient was no longer hypotensive. Patient subsequently admitted to telemetry floor for further management CONSULTANTS: talent development manager neurologist pulmonary Dr. Carey ID specialist B Dr. Acevedo GI specialist Dr. Hargrove fire crew specialist emergency physician/oncologist surgery psychiatrist HOSPITAL COURSE: [] Patient admitted to telemetry floor. Supplemental oxygen provided as needed to keep pulse oximetry above 92% pulmonary toilet provided as needed. DVT prophylaxis provided. Bowel regimen instituted. Blood sugar was managed with sliding scale insulin. Anemia work-up consistent with chronic treatment provided antiemetic provided as needed. Patient undergone on 514 upper endoscopy with biopsy and colonoscopy which revealed gastritis biopsied for colonic prep, diverticulosis and internal hemorrhoids. GI specialist recommended to do repeat colonoscopy no later than 1 year after this 1 given the poor preparation. He also recommended to advance diet as tolerated and check stool for occult blood stool for occult blood was positive. Hemoglobin and hematocrit were closely monitor his goal to keep hemoglobin above 7 hemoglobin hematocrit immune baseline prior to discharge hemoglobin 9.9 hematocrit 31. Infectious disease specialist follow. Patient remained afebrile no leukocytosis ID specialist recommended to monitor patient off antibiotics unless leukoc patient clinically stabilized and was ready for discharge home ytosis febrile or hemodynamically hemodynamic decompensation. Strict aspiration precaution maintain patient remained stable FINAL DIAGNOSES: Blood sugar was managed with metformin and glipizide. Sliding scale of insulin was on board as needed. Blood pressure was managed with calcium channel ron. Statin continue. 1. [] Abdominal pain Gastritis status post biopsy Diverticulosis Internal hemorrhoids pathology results of the antrum antrum biopsy revealed mild chronic gastritis no H. pylori identified. Hypertension Diabetes mellitus Anemia DISCHARGE MEDICATIONS: See Medication Reconciliation list. DISCHARGE INSTRUCTIONS: Patient was discharged home . Follow up with primary care provider in one week. I have been assigned to dictate discharge summary for this account. I was not involved in the patient's management. Latanya Swanson NP October 28, 2018 13:43
== END 2018-10-27 18:07 | disposition home or self-care (01) | DRG 392 ==
LOC: EDBD 05:47 → EDSEX 05:47 → EMR 06:02 → 2E 07:08 → EDBEDREQ 09:04
PROC: 0DB78ZX Excision of Stomach, Pylorus, Via Natural or Artificial Opening Endoscopic, Diagnostic (ICD-10-PCS; principal; 2018-10-27 11:51)
PROC: 0DJD8ZZ Inspection of Lower Intestinal Tract, Via Natural or Artificial Opening Endoscopic (ICD-10-PCS; principal; 2018-10-27 11:51)
DX: K29.70 Gastritis, unspecified, without bleeding (principal); I95.9 Hypotension, unspecified; K57.90 Diverticulosis of intestine, part unspecified, without perforation or abscess without bleeding; K83.8 Other specified diseases of biliary tract; D64.9 Anemia, unspecified; I44.0 Atrioventricular block, first degree; I10 Essential (primary) hypertension; E11.9 Type 2 diabetes mellitus without complications; E78.00 Pure hypercholesterolemia, unspecified; K64.8 Other hemorrhoids; Z88.8 Allergy status to other drugs, medicaments and biological substances; F17.200 Nicotine dependence, unspecified, uncomplicated; E66.9 Obesity, unspecified; Z79.84 Long term (current) use of oral hypoglycemic drugs
CPT/HCPCS: 36415; 71045; 74018; 76700; 80048; 80053; 80329; 82150; 82270; 82962; 83605; 83690; 83735; 83880; 84484; 85025; 85610; 85730; 93005; 94003; 94150; 96374; 96375; 96376; 99285; J2250; J2765